=== PATIENT | female | born 1955 | race Caucasian/White ===

== ENCOUNTER 2019-12-25 09:52 | Inpatient (IN) | payer MEDICARE ==
[~2019-12-25] VITALS: Ht 170.2 cm; Wt 50.8 kg
--- OUTSIDE RECORDS SUMMARY | 2019-12-25 09:55 | XMS REPORT ---
Author Author [facility] Address Unknown Phone Unavailable Care Team Providers Care Receiving Checker Name Role Phone Unavailable Unavailable Payers Payer Name Policy Type Policy Number Effective Date Expiration Date Problems This patient has no known problems. Allergies, Adverse Reactions, Alerts Allergy Name Allergy Type Status Severity Reaction(s) Onset Date Inactive Date Treating Clinician Comments No Known Allergies DA Active U 2019-08-21 00:00:00 Medications This patient has no known medications. Encounters Start Date/Time End Date/Time Encounter Type Admission Type Attending [facility] Facility Care Department Encounter ID 2019-07-10 04:23:00 2019-07-10 00:07:00 Inpatient E SE MED [id number] Results Test Description Test Time Test Comments Text Results Atomic Results Result Comments COMPREHENSIVE METABOLIC PANEL 2019-10-22 07:14:00 SODIUM (test code=NA) 139 mmol/L 136-145 POTASSIUM (test code=K) 5.0 mmol/L 3.5-5.1 CHLORIDE (test code=CL) 110.0 mmol/L 98-107 CARBON DIOXIDE (test code=CO2) 23.0 mmol/L 21-32 ANION GAP (test code=GAP) 11.0 10-20 GLUCOSE (test code=GLU) 113 mg/dL 74-106 BLOOD UREA NITROGEN (test code=BUN) 20 mg/dL 7-18 GLOMERULAR FILTRATION RATE (test code=GFR) > 60 mL/min >=60 Estimated GFR by using Modified MDRD formula.Chronic kidney disease is defined as either kidney damageor GFR <60 mL/min/1.73 m2 for >3 months. CREATININE (test code=CREAT) 0.80 mg/dL 0.55-1.02 Note change in reference range due to change in reagent. BUN/CREATININE RATIO (test code=BUN/CREA) 25.8 10-20 TOTAL PROTEIN (test code=PROT) 5.8 gram/dL 6.4-8.2 ALBUMIN (test code=ALB) 2.1 g/dL 3.4-5.0 GLOBULIN (test code=GLOB) 3.7 gram/dL 2.7-4.2 ALBUMIN/GLOBULIN RATIO (test code=A/G) 0.6 0.75-1.50 CALCIUM (test code=CA) 8.2 mg/dL 8.5-10.1 BILIRUBIN TOTAL (test code=BILT) 0.20 mg/dL 0.0-1.0 SGOT/AST (test code=AST) 10 IUnit/L 15-37 SGPT/ALT (test code=ALT) 12 IUnit/L 12-78 ALKALINE PHOSPHATASE TOTAL (test code=ALKP) 71 IUnit/L 45-117 Note change in reference range due to change in reagent. COMPREHENSIVE METABOLIC [id number] 07:09:00* Test Item Value Reference Range Comments SODIUM (test code=NA) 139 mmol/L 136-145 POTASSIUM (test code=K) 5.0 mmol/L 3.5-5.1 CHLORIDE (test code=CL) 110.0 mmol/L 98-107 CARBON DIOXIDE (test code=CO2) mmol/L 21-32 ANION GAP (test code=GAP) 10-20 GLUCOSE (test code=GLU) mg/dL 74-106 BLOOD UREA NITROGEN (test code=BUN) mg/dL 7-18 GLOMERULAR FILTRATION RATE (test code=GFR) mL/min >=60 CREATININE (test code=CREAT) mg/dL 0.55-1.02 BUN/CREATININE RATIO (test code=BUN/CREA) 10-20 TOTAL PROTEIN (test code=PROT) gram/dL 6.4-8.2 ALBUMIN (test code=ALB) g/dL 3.4-5.0 GLOBULIN (test code=GLOB) gram/dL 2.7-4.2 ALBUMIN/GLOBULIN RATIO (test code=A/G) 0.75-1.50 CALCIUM (test code=CA) mg/dL 8.5-10.1 BILIRUBIN TOTAL (test code=BILT) mg/dL 0.0-1.0 SGOT/AST (test code=AST) IUnit/L 15-37 SGPT/ALT (test code=ALT) IUnit/L 12-78 ALKALINE PHOSPHATASE TOTAL (test code=ALKP) IUnit/L 45-117 CBC W/AUTO [id number] 06:56:00* Test Item Value Reference Range Comments WHITE BLOOD CELL (test code=WBC) 11.1 K/mm3 4.5-12.5 RED BLOOD CELL (test code=RBC) 3.81 mill/mm3 3.7-5.2 HEMOGLOBIN (test code=HGB) 10.5 gram/dL 11.5-15.5 HEMATOCRIT (test code=HCT) 33.9 % 36.0-46.0 MEAN CELL VOLUME (test code=MCV) 89.0 fL 80-98 MEAN CELL HGB (test code=MCH) 27.6 picogram 27.0-33.0 MEAN CELL HGB CONCETRATION (test code=MCHC) 31.0 gram/dL 33.0-36.0 RED CELL DISTRIBUTION WIDTH (test code=RDW) 14.6 % 11.6-16.2 RED CELL DISTRIBUTION WIDTH SD (test code=RDW-SD) 47.3 fL 37.0-51.0 PLATELET COUNT (test code=PLT) 480 K/mm3 150-450 RESULT VERIFIED BY REPEAT ANALYSIS MEAN PLATELET VOLUME (test code=MPV) 8.7 fL 6.7-11.0 NEUTROPHIL % (test code=NT%) 87.6 % 39.0-69.0 IMMATURE GRANULOCYTE % (test code=IG%) 1.4 % 0.0-5.0 LYMPHOCYTE % (test code=LY%) 8.6 % 25.0-55.0 MONOCYTE % (test code=MO%) 2.3 % 0.0-10.0 EOSINOPHIL % (test code=EO%) 0.0 % 0.0-5.0 BASOPHIL % (test code=BA%) 0.1 % 0.0-1.0 NUCLEATED RBC % (test code=NRBC%) 0.0 % 0-0 NEUTROPHIL # (test code=NT#) 9.73 K/mm3 1.8-7.7 IMMATURE GRANULOCYTE # (test code=IG#) 0.15 x10 3/uL 0-0.03 LYMPHOCYTE # (test code=LY#) 0.96 K/mm3 1.0-5.0 MONOCYTE # (test code=MO#) 0.26 K/mm3 0-0.8 EOSINOPHIL # (test code=EO#) 0.00 K/mm3 0.0-0.5 BASOPHIL # (test code=BA#) 0.01 K/mm3 0.0-0.2 NUCLEATED RBC # (test code=NRBC#) 0.00 K/mm3 0.0-0.1 MANUAL DIFF REQUIRED (test code=MDIFF) NO COMPREHENSIVE METABOLIC [id number] 09:50:00* Test Item Value Reference Range Comments SODIUM (test code=NA) 141 mmol/L 136-145 POTASSIUM (test code=K) 4.3 mmol/L 3.5-5.1 CHLORIDE (test code=CL) 112.0 mmol/L 98-107 CARBON DIOXIDE (test code=CO2) 23.0 mmol/L 21-32 ANION GAP (test code=GAP) 10.3 10-20 GLUCOSE (test code=GLU) 124 mg/dL 74-106 BLOOD UREA NITROGEN (test code=BUN) 18 mg/dL 7-18 GLOMERULAR FILTRATION RATE (test code=GFR) > 60 mL/min >=60 Estimated GFR by using Modified MDRD formula.Chronic kidney disease is defined as either kidney damageor GFR <60 mL/min/1.73 m2 for >3 months. CREATININE (test code=CREAT) 0.70 mg/dL 0.55-1.02 Note change in reference range due to change in reagent. BUN/CREATININE RATIO (test code=BUN/CREA) 24.7 10-20 TOTAL PROTEIN (test code=PROT) 5.9 gram/dL 6.4-8.2 ALBUMIN (test code=ALB) 1.9 g/dL 3.4-5.0 GLOBULIN (test code=GLOB) 4.0 gram/dL 2.7-4.2 ALBUMIN/GLOBULIN RATIO (test code=A/G) 0.5 0.75-1.50 CALCIUM (test code=CA) 7.7 mg/dL 8.5-10.1 BILIRUBIN TOTAL (test code=BILT) 0.20 mg/dL 0.0-1.0 SGOT/AST (test code=AST) 8 IUnit/L 15-37 SGPT/ALT (test code=ALT) 9 IUnit/L 12-78 ALKALINE PHOSPHATASE TOTAL (test code=ALKP) 67 IUnit/L 45-117 Note change in reference range due to change in reagent. COMPREHENSIVE METABOLIC [id number] 09:41:00* Test Item Value Reference Range Comments SODIUM (test code=NA) 141 mmol/L 136-145 POTASSIUM (test code=K) 4.3 mmol/L 3.5-5.1 CHLORIDE (test code=CL) 112.0 mmol/L 98-107 CARBON DIOXIDE (test code=CO2) mmol/L 21-32 ANION GAP (test code=GAP) 10-20 GLUCOSE (test code=GLU) mg/dL 74-106 BLOOD UREA NITROGEN (test code=BUN) mg/dL 7-18 GLOMERULAR FILTRATION RATE (test code=GFR) mL/min >=60 CREATININE (test code=CREAT) mg/dL 0.55-1.02 BUN/CREATININE RATIO (test code=BUN/CREA) 10-20 TOTAL PROTEIN (test code=PROT) gram/dL 6.4-8.2 ALBUMIN (test code=ALB) g/dL 3.4-5.0 GLOBULIN (test code=GLOB) gram/dL 2.7-4.2 ALBUMIN/GLOBULIN RATIO (test code=A/G) 0.75-1.50 CALCIUM (test code=CA) mg/dL 8.5-10.1 BILIRUBIN TOTAL (test code=BILT) mg/dL 0.0-1.0 SGOT/AST (test code=AST) IUnit/L 15-37 SGPT/ALT (test code=ALT) IUnit/L 12-78 ALKALINE PHOSPHATASE TOTAL (test code=ALKP) IUnit/L 45-117 CBC W/AUTO [id number] 09:20:00* Test Item Value Reference Range Comments WHITE BLOOD CELL (test code=WBC) 14.2 K/mm3 4.5-12.5 RED BLOOD CELL (test code=RBC) 3.35 mill/mm3 3.7-5.2 HEMOGLOBIN (test code=HGB) 9.1 gram/dL 11.5-15.5 HEMATOCRIT (test code=HCT) 29.7 % 36.0-46.0 MEAN CELL VOLUME (test code=MCV) 88.7 fL 80-98 MEAN CELL HGB (test code=MCH) 27.2 picogram 27.0-33.0 MEAN CELL HGB CONCETRATION (test code=MCHC) 30.6 gram/dL 33.0-36.0 RED CELL DISTRIBUTION WIDTH (test code=RDW) 14.6 % 11.6-16.2 RED CELL DISTRIBUTION WIDTH SD (test code=RDW-SD) 46.8 fL 37.0-51.0 PLATELET COUNT (test code=PLT) 379 K/mm3 150-450 MEAN PLATELET VOLUME (test code=MPV) 8.9 fL 6.7-11.0 NEUTROPHIL % (test code=NT%) 91.7 % 39.0-69.0 IMMATURE GRANULOCYTE % (test code=IG%) 1.0 % 0.0-5.0 LYMPHOCYTE % (test code=LY%) 5.0 % 25.0-55.0 MONOCYTE % (test code=MO%) 2.2 % 0.0-10.0 EOSINOPHIL % (test code=EO%) 0.0 % 0.0-5.0 BASOPHIL % (test code=BA%) 0.1 % 0.0-1.0 NUCLEATED RBC % (test code=NRBC%) 0.1 % 0-0 NEUTROPHIL # (test code=NT#) 13.04 K/mm3 1.8-7.7 IMMATURE GRANULOCYTE # (test code=IG#) 0.14 x10 3/uL 0-0.03 LYMPHOCYTE # (test code=LY#) 0.71 K/mm3 1.0-5.0 MONOCYTE # (test code=MO#) 0.31 K/mm3 0-0.8 EOSINOPHIL # (test code=EO#) 0.00 K/mm3 0.0-0.5 BASOPHIL # (test code=BA#) 0.02 K/mm3 0.0-0.2 NUCLEATED RBC # (test code=NRBC#) 0.02 K/mm3 0.0-0.1 MANUAL DIFF REQUIRED (test code=MDIFF) NO - XR ABDOMEN AP 1 [id number] 15:53:00 FAX: Gabrielle Hernandez MD [phone] Oark: B St: ADM FAX: Nito Berman [phone] FAX: Suhas Solis MD [phone] Name: TRAVIS MUELLER [facility] : 1955 Age/S: 64/F [address] Unit #: [id number] Loc: [place] [address] Phys: Suhas Walker MD Acct: [id number] Dis Date: Status: ADM IN ONE #: [phone] Exam Date: 10/20/2019 1535 FAX #: [phone] Reason: intussucception EXAMS: CPT CODE: [id number] XR ABDOMEN AP 1 V 09600 HISTORY: Intus susception. COMPARISON: None available. Location: TH . Single view abdomen: No bowel obstruction. Postop changes with extensive surgical sutures in the right lower quadrant. Melisa gical clips in the pelvis as well. No pathologic calcifications. DJD of the lumbar spine. IMPRESSION: No bowel obstruc tion. Postop changes with multiple surgical sutures in the right lower quadrant. a t 1410 Reported and signed by: Norbert Ly M.D. CC: Gabrielle Hernandez MD; Nito Delatorre DO; Suhas Walker MD Techn ologist: SON NATARAJAN(R) Trnscrd Date/Adam e/By: 10/20/2019 (7155) : By: [email or web address] Orig Print D/T: S: 10/20/2019 (7901) PAGE 1 Signed Report COMPREHENSIVE METABOLIC [id number] 15:35:00* Test Item Value Reference Range Comments SODIUM (test code=NA) 144 mmol/L 136-145 POTASSIUM (test code=K) 4.5 mmol/L 3.5-5.1 CHLORIDE (test code=CL) 111.0 mmol/L 98-107 CARBON DIOXIDE (test code=CO2) 25.0 mmol/L 21-32 ANION GAP (test code=GAP) 12.5 10-20 GLUCOSE (test code=GLU) 126 mg/dL 74-106 BLOOD UREA NITROGEN (test code=BUN) 21 mg/dL 7-18 GLOMERULAR FILTRATION RATE (test code=GFR) > 60 mL/min >=60 Estimated GFR by using Modified MDRD formula.Chronic kidney disease is defined as either kidney damageor GFR <60 mL/min/1.73 m2 for >3 months. CREATININE (test code=CREAT) 0.90 mg/dL 0.55-1.02 Note change in reference range due to change in reagent. BUN/CREATININE RATIO (test code=BUN/CREA) 24.1 10-20 TOTAL PROTEIN (test code=PROT) 6.1 gram/dL 6.4-8.2 ALBUMIN (test code=ALB) 2.3 g/dL 3.4-5.0 GLOBULIN (test code=GLOB) 3.8 gram/dL 2.7-4.2 ALBUMIN/GLOBULIN RATIO (test code=A/G) 0.6 0.75-1.50 CALCIUM (test code=CA) 8.5 mg/dL 8.5-10.1 BILIRUBIN TOTAL (test code=BILT) 0.30 mg/dL 0.0-1.0 SGOT/AST (test code=AST) 9 IUnit/L 15-37 SGPT/ALT (test code=ALT) 9 IUnit/L 12-78 ALKALINE PHOSPHATASE TOTAL (test code=ALKP) 79 IUnit/L 45-117 Note change in reference range due to change in reagent. COMPREHENSIVE METABOLIC [id number] 15:26:00* Test Item Value Reference Range Comments SODIUM (test code=NA) 144 mmol/L 136-145 POTASSIUM (test code=K) 4.5 mmol/L 3.5-5.1 CHLORIDE (test code=CL) 111.0 mmol/L 98-107 CARBON DIOXIDE (test code=CO2) mmol/L 21-32 ANION GAP (test code=GAP) 10-20 GLUCOSE (test code=GLU) mg/dL 74-106 BLOOD UREA NITROGEN (test code=BUN) mg/dL 7-18 GLOMERULAR FILTRATION RATE (test code=GFR) mL/min >=60 CREATININE (test code=CREAT) mg/dL 0.55-1.02 BUN/CREATININE RATIO (test code=BUN/CREA) 10-20 TOTAL PROTEIN (test code=PROT) gram/dL 6.4-8.2 ALBUMIN (test code=ALB) g/dL 3.4-5.0 GLOBULIN (test code=GLOB) gram/dL 2.7-4.2 ALBUMIN/GLOBULIN RATIO (test code=A/G) 0.75-1.50 CALCIUM (test code=CA) mg/dL 8.5-10.1 BILIRUBIN TOTAL (test code=BILT) mg/dL 0.0-1.0 SGOT/AST (test code=AST) IUnit/L 15-37 SGPT/ALT (test code=ALT) IUnit/L 12-78 ALKALINE PHOSPHATASE TOTAL (test code=ALKP) IUnit/L 45-117 CBC W/AUTO [id number] 12:17:00* Test Item Value Reference Range Comments WHITE BLOOD CELL (test code=WBC) 17.0 K/mm3 4.5-12.5 RED BLOOD CELL (test code=RBC) 3.47 mill/mm3 3.7-5.2 HEMOGLOBIN (test code=HGB) 9.6 gram/dL 11.5-15.5 HEMATOCRIT (test code=HCT) 31.7 % 36.0-46.0 MEAN CELL VOLUME (test code=MCV) 91.4 fL 80-98 MEAN CELL HGB (test code=MCH) 27.7 picogram 27.0-33.0 MEAN CELL HGB CONCETRATION (test code=MCHC) 30.3 gram/dL 33.0-36.0 RED CELL DISTRIBUTION WIDTH (test code=RDW) 14.6 % 11.6-16.2 RED CELL DISTRIBUTION WIDTH SD (test code=RDW-SD) 49.1 fL 37.0-51.0 PLATELET COUNT (test code=PLT) 343 K/mm3 150-450 MEAN PLATELET VOLUME (test code=MPV) 8.3 fL 6.7-11.0 NEUTROPHIL % (test code=NT%) 90.3 % 39.0-69.0 IMMATURE GRANULOCYTE % (test code=IG%) 0.9 % 0.0-5.0 LYMPHOCYTE % (test code=LY%) 4.4 % 25.0-55.0 MONOCYTE % (test code=MO%) 4.2 % 0.0-10.0 EOSINOPHIL % (test code=EO%) 0.0 % 0.0-5.0 BASOPHIL % (test code=BA%) 0.2 % 0.0-1.0 NUCLEATED RBC % (test code=NRBC%) 0.0 % 0-0 NEUTROPHIL # (test code=NT#) 15.37 K/mm3 1.8-7.7 IMMATURE GRANULOCYTE # (test code=IG#) 0.16 x10 3/uL 0-0.03 LYMPHOCYTE # (test code=LY#) 0.75 K/mm3 1.0-5.0 MONOCYTE # (test code=MO#) 0.72 K/mm3 0-0.8 EOSINOPHIL # (test code=EO#) 0.00 K/mm3 0.0-0.5 BASOPHIL # (test code=BA#) 0.03 K/mm3 0.0-0.2 NUCLEATED RBC # (test code=NRBC#) 0.00 K/mm3 0.0-0.1 PROCALCITONIN (PCT)2019-10-20 05:50:00* Test Item Value Reference Range Comments PROCALCITONIN (PCT) (test code=PROCAL) 0.82 ng/ml Concentration Interpretation (ng/mL) <0.51 Sepsis is not likely. Local bacterial infection is possible. (LOW RISK for progression to Sepsis) 0.51 - 2.00 Sepsis is possible, but other conditions are known to elevate PCT as well. (MODERATE RISK for progression to Sepsis) > 2.00 Sepsis is likely, unless other causes are known. (HIGH RISK for progression to Severe Sepsis or Septic Shock) 10.00 High likelihood of Severe Sepsis or Septic or higher Shock. *Increased PCT levels may not always be related to systemic bacterial infection.*Low PCT levels do not automatically exclude the presence of bacterial infection.*All results should be interpreted taking into account the patients history. LACTIC [id number] 05:31:00* Test Item Value Reference Range Comments LACTIC ACID (test code=LACT) 1.2 mmol/L 0.4-1.9 URINALYSIS [id number] 15:05:00* Test Item Value Reference Range Comments UA COLOR (test code=COLU) Light-Yellow YELLOW UA APPEARANCE (test code=APPU) CLEAR CLEAR UA GLUCOSE DIPSTICK (test code=DGLUU) NEGATIVE mg/dL NEGATIVE UA BILIRUBIN DIPSTICK (test code=BILU) NEGATIVE mg/dL NEGATIVE UA KETONE DIPSTICK (test code=KETU) NEGATIVE mg/dL NEGATIVE UA SPECIFIC GRAVITY (test code=SGU) 1.040 1.001-1.035 UA BLOOD DIPSTICK (test code=MERLY) Negative mg/dL NEGATIVE UA PH DIPSTICK (test code=ANAHI) 5.5 5.0-8.0 UA PROTEIN DIPSTICK (test code=PROU) 20 (Trace) mg/dL NEGATIVE UA UROBILINIOGEN DIPSTICK (test code=URO) Normal mg/dL NEGATIVE UA NITRITE DIPSTICK (test code=ISIDRO) POSITIVE NEGATIVE UA LEUKOCYTE ESTERASE W REFLEX (test code=LEUUR) NEGATIVE Kathia/uL NEGATIVE UA WBC (test code=WBCU) 0-5 per HPF 0-5 UA RBC (test code=RBCU) 0-2 #/HPF 0-5 UA EPITHELIAL CELLS (test code=EPIU) FEW per HPF FEW UA BACTERIA (test code=BACU) FEW #/HPF NONE UA MUCUS (test code=MUCU) FEW #/LPF FEW Urine Source? Clean Catch- CT CHEST W/O [id number] 14:26:00 Name: TRAVIS MUELLER [facility] : 1955 Age/S: 64 / F [address] Unit #: [id number] Loc: [place] [address] Phys: Angelic Hopson MD Acct: [id number] Di s Date: Status: ADM IN PHONE #: [phone] Exam Date: 10/19/2019 0203 FAX #: [phone] Reason: SOB EXAMS: CPT CODE: [id number] CT CHEST W/O CONTRAST 43515 REASON FOR EXAM: CODE SEP SIS EXAM ORDER DATE: 10/19/2019 9:38 AM Ordering M.D. : Kalia Hopson MD PROCEDURE: - CT ABD PELVIS W/CONT, - CT CHEST W/O CONTRAST Axial CT images were acquired through the chest/abdomen/pelv is. Images of the chest were obtained prior to the administration of IV co ntrast and images of the abdomen and pelvis were acquired following administration of IV contrast. Sagittal and coronal reformatted images wer e generated. Automated exposure control was utilized for this reduction. Phases of contrast: venous and delayed COMPARISON: CT angiogram of the chest August 21, 2019 FINDINGS: The absence of IV contrast limits sensitivity of this exam for the detecti on of soft tissue pathology and the thorax Visualized neck: Grossl y normal Airways, Lungs and Pleura: There are extensive paraseptal and centrilobular emphysematous changes throughout both lungs. There is subsegmental atelectasis in the dependent lungs. There is a cystic le dimitris in the right lung at the confluence of the upper, middle, and lower l obe with air-fluid levels that measures up to 7.5 x 4.6 cm cross-sectional ly (02/[address] chest).. Central airways are patent. Heart, gre at vessels, pulmonary vessels, mediastinum: Mild atherosclerotic disease o f the thoracic aorta. The thoracic aorta is slightly ectatic measuring 3.7 cm in diameter. There is fatty metaplasia of the right ventricle wall whi ch may be secondary to chronic ischemic changes. Mild atherosclerotic dise ase is present in the coronary arteries. Thoracic Lymph node s: No axillary, internal mammary, or mediastinal adenopathy. Hilar lymph n odes are suboptimally evaluated due to the absence of IV contrast and the chest Hepatobiliary system: Normal PAGE 1 Signed Report (CONTINUED) Name: TRAVIS MUELLER [facility] : 1955 Age/S: 64 / F [address] [facility] Unit #: [id number] Loc: [place] [address] Phys: Kalia Hopson MD Acct: [id number] Dis Date: atus: ADM IN PHONE #: [phone] Exam Ricardo e: 10/19/2019 1336 FAX #: [phone] Reason: SOB EXAMS: CPT CODE: [id number] CT CHEST W/O CONTRAST 76570 <Continued> Pancreas: Atrophic Spleen: Calcified granulomas are present in the parenchyma Adrenal glands: Normal Genitourinary system: Normal Gastrointestinal tract and appendix: Diverticular disease is present in the sigmoid colon but no evidence of diverticulitis. Postsurgical changes in the right lower abdomen near the ileocecal junction may be from prior appendectomy. Moderate to heavy stool burden is seen in the ascending colon. There is intussusception involving a 4.6 cm segment of small bowel (601/64) in the left midabdomen. No dilation of the small bowel proximally to suggest obstruction. Stomach is within normal limits Abdominal vascular structures: Atherosclerotic disease is seen throughout the abdominal aorta and extends into the iliac arteries and mesenteric arteries Peritoneum and retroperitoneum: No free fluid or free air. No omental or mesenteric masses. No abnormal lymph nodes. Musculoskeletal structures, chest wall, and abdominal wall: Grade 1 anterolisthesis of L4-L5. Mild disc degeneration is present at L5-S1. Postsurgical changes of laparotomy are noted. IMPRESSION: Cystic lesion in the right lung with air-fluid levels. This may represent a pneumatocele with superimposed infection versus a pulmonary abscess. Severe emphysematous changes throughout both lungs. Colonic diverticulosis without evidence of diverticulitis. Intussusc eption of small bowel in the left midabdomen as above. Locatio n: [facility] at 1426 Reported and signed by: Vitaliy Parsons MD PAGE 2 Signed Report (CONTINUED) Name: TRAVIS MUELLER [facility] : 1955 A ge/S: 64 / F [address] [facility] Unit #: [id number] Loc : [place] [address] Phys: Kalia Hopson MD Acct: [id number] Dis Date: Status: ADM IN PHONE #: [phone] Exam Date: 10/19/2019 1708 FAX #: [phone] Reason: SOB EXAMS: CPT CODE: [id number] CT CHEST W/O CONTRAST 14803 <Continued> CC: Gabrielle Hernandez MD; Nito Delatorre DO; Kalia Hopson MD Technologist:Frandy Gomez RT(R),(MR),(CT); CTDI: DLP: Trnscb Date/Time: 10/19/2019 (7066) [email or web address] Orig Print D/T: S: 10/19/2019 (7501) PAGE 3 Signed Report - CT ABD PELVIS [id number] 14:26:00 Name: TRAVIS MUELLER [facility] : 1955 Age/S: 64 / F [address] [facility] Unit #: [id number] Loc: [place] [address] Phys: Kalia Hopson MD Acct: [id number] Dis Date: Status: ADM IN PHONE #: [phone] Exam Date: 10/19/2019 1335 FAX #: [phone] Reason: CODE SEPSIS EXAMS: CPT CODE: [id number] CT ABD PELVIS W/CONT 77850 REASON FOR EXAM: CODE SEPSIS EXAM ORDER DATE: 10/19/2019 9:38 AM Ordering M.D.: Kalia Hopson MD PROCEDURE: - CT ABD PELVIS W/CONT, - CT CHEST W/O CONTRAST Axial CT images were acquired through the chest/abdomen/pelvis. Images of the chest were obtained prior to the administration of IV contrast and images of the abdomen and pelvis were acquired following administration of IV contrast. Sagittal and coronal reformatted images were generated. Automated exposure control was utilized for this reduction. Phases of contrast: venous and delayed COMPARISON: CT angiogram of the chest August 21, 2019 FINDINGS: The absence of IV contrast limits sensitivity of this exam for the detection of soft tissue pathology and the thorax Visualized neck: Grossly normal Airways, Lungs and Pleura: There are extensive paraseptal and centrilobular emphysematous changes throughout both lungs. There is subsegmental atelectasis in the dependent lungs. There is a cystic lesion in the right lung at the confluence of the upper, middle, and lower lobe with air-fluid levels that measures up to 7.5 x 4.6 cm cross-sectionally (02/[address] chest).. Central airways are patent. Heart, great vessels, pulmonary vessels, mediastinum: Mild atherosclerotic disease of the thoracic aorta. The thoracic aorta is slightly ectatic measuring 3.7 cm in diameter. There is fatty metaplasia of the right ventricle wall whi ch may be secondary to chronic ischemic changes. Mild atherosclerotic dise ase is present in the coronary arteries. Thoracic Lymph node s: No axillary, internal mammary, or mediastinal adenopathy. Hilar lymph n odes are suboptimally evaluated due to the absence of IV contrast and the chest Hepatobiliary system: Normal PAGE 1 Signed Report (CONTINUED) Name: TRAVIS MUELLER [facility] : 1955 Age/S: 64 / F [address] [facility] Unit #: [id number] Loc: [facility] [address] Phys: Kalia Hopson MD Acct: [id number] Dis Date: atus: ADM IN PHONE #: [phone] Exam Ricardo e: 10/19/2019 1335 FAX #: [phone] Reason: CODE SE PSIS EXAMS: CPT CODE: [id number] CT ABD PELVIS W/CONT 81974 <Continued> Pancreas: Atrophic Spleen: Calcified granulomas are present in the parenchyma Adrenal glands: Normal Genitourinary system: Normal Gastrointestinal tract and appendix: Diverticular disease is present in the sigmoid colon but no evidence of diverticulitis. Postsurgical changes in the right lower abdomen near the ileocecal junction may be from prior appendectomy. Moderate to heavy stool burden is seen in the ascending colon. There is intussusception involving a 4.6 cm segment of small bowel (601/64) in the left midabdomen. No dilation of the small bowel proximally to suggest obstruction. Stomach is within normal limits Abdominal vascular structures: Atherosclerotic disease is seen throughout the abdominal aorta and extends into the iliac arteries and mesenteric arteries Peritoneum and retroperitoneum: No free fluid or free air. No omental or mesenteric masses. No abnormal lymph nodes. Musculoskeletal structures, chest wall, and abdominal wall: Grade 1 anterolisthesis of L4-L5. Mild disc degeneration is present at L5-S1. Postsurgical changes of laparotomy are noted. IMPRESSION: Cystic lesion in the right lung with air-fluid levels. This may represent a pneumatocele with superimposed infection versus a pulmonary abscess. Severe emphysematous changes throughout both lungs. Colonic diverticulosis without evidence of diverticulitis. Intussusc eption of small bowel in the left midabdomen as above. Locatio n: [facility] at 1426 Reported and signed by: Vitaliy Parsons MD PAGE 2 Signed Report (CONTINUED) Name: TRAVIS MUELLER [facility] : 1955 A ge/S: 64 / F [facility] Unit #: [id number] Loc : [facility] [address] Phys: Kalia Hopson MD Acct: [id number] Dis Date: Status: ADM IN PHONE #: [phone] Exam Date: 10/19/2019 1335 FAX #: [phone] Reason: CODE SEPSIS EXAMS: CPT CODE: [id number] CT ABD PELVIS W/CONT 23561 <Continued> CC: Nito Delatorre DO; Kalia Hopson MD Technologist:Frandy Gomez RT(R),(MR),(CT); CTDI: DLP: Trnscb Date/Time: 10/19/2019 (1425) [id number] Orig Print D/T: S: 10/19/2019 (1428) PAGE 3 Signed Report B-TYPE NATRIURETIC [id number] 11:13:00* Test Item Value Reference Range Comments B-TYPE NATRIURETIC PEPTIDE (test code=BNP) 194.68 pgram/mL 0-100 PROCALCITONIN (PCT)2019-10-19 10:44:00* Test Item Value Reference Range Comments PROCALCITONIN (PCT) (test code=PROCAL) 1.23 ng/ml Concentration Interpretation (ng/mL) <0.51 Sepsis is not likely. Local bacterial infection is possible. (LOW RISK for progression to Sepsis) 0.51 - 2.00 Sepsis is possible, but other conditions are known to elevate PCT as well. (MODERATE RISK for progression to Sepsis) > 2.00 Sepsis is likely, unless other causes are known. (HIGH RISK for progression to Severe Sepsis or Septic Shock) 10.00 High likelihood of Severe Sepsis or Septic or higher Shock. *Increased PCT levels may not always be related to systemic bacterial infection.*Low PCT levels do not automatically exclude the presence of bacterial infection.*All results should be interpreted taking into account the patients history. - XR CHEST 1 [id number] 10:36:00 FAX: Nito Berman [phone] Oark: St: REG FAX: Kalia Hopson MD Name: TRAVIS MUELLER [facility] : 1955 Age/S: 64/F [address] Unit #: [id number] Loc: [place] [address] Phys: Kalia Hopson MD Acct: [id number] Dis Date: Status: REG ER PHONE #: [phone] Exam Date: 10/19/2019 1001 FAX #: [phone] Reason: CODE SEPSIS EXAMS: CPT CODE: [id number] XR CHEST 1 V [id number] REASON FOR EXAM: CODE SEPSIS Exam Order Date: 10/19/2019 9:38 AM Ordering M.D.: Kalia Hopson MD PROCEDURE: - XR CHEST 1 V COMPARISON: CT and radiograph of the chest August 21, 2019 FINDINGS: There are emphysematous and fibrotic changes in both lungs which are worse in the upper lobes. When compared to the prior chest radiograph, there are worsening opacities in the right upper lobe which may represent a superimposed infection. The cardiomediastinal silhouette and musculoskeletal structures are within normal limits. IMPRESSION: Emphysematous and fibrotic changes throughout both lungs are redemonstrated and there is worsening opacification in the right upper lobe which may represent a superimposed infection. Location: [facility] Electronical ly Signed by Vitaliy Parsons MD on 10/19/2019 at 1036 Report ed and signed by: Vitaliy Parsons MD CC: Nito Delatorre DO; Shalonda Hopson MD Technologist: Brittanie Carter RT(R) Trnscrd Date/Time/By: 10/19/2019 (1036) : By: [email or web address] O rig Print D/T: S: 10/19/2019 (8065) PAGE 1 Signed Report BASIC METABOLIC PANEL 2019-10-19 10:31:00* Test Item Value Reference Range Comments SODIUM (test code=NA) 136 mmol/L 136-145 POTASSIUM (test code=K) 4.0 mmol/L 3.5-5.1 CHLORIDE (test code=CL) 102.0 mmol/L 98-107 CARBON DIOXIDE (test code=CO2) 25.0 mmol/L 21-32 ANION GAP (test code=GAP) 13.0 10-20 GLUCOSE (test code=GLU) 100 mg/dL 74-106 BLOOD UREA NITROGEN (test code=BUN) 25 mg/dL 7-18 GLOMERULAR FILTRATION RATE (test code=GFR) > 60 mL/min >=60 Estimated GFR by using Modified MDRD formula.Chronic kidney disease is defined as either kidney damageor GFR <60 mL/min/1.73 m2 for >3 months. CREATININE (test code=CREAT) 0.90 mg/dL 0.55-1.02 Note change in reference range due to change in reagent. BUN/CREATININE RATIO (test code=BUN/CREA) 26.7 10-20 CALCIUM (test code=CA) 9.5 mg/dL 8.5-10.1 HEPATIC FUNCTION [id number] 10:31:00* Test Item Value Reference Range Comments TOTAL PROTEIN (test code=PROT) 8.3 gram/dL 6.4-8.2 ALBUMIN (test code=ALB) 2.7 g/dL 3.4-5.0 GLOBULIN (test code=GLOB) 5.6 gram/dL 2.7-4.2 ALBUMIN/GLOBULIN RATIO (test code=A/G) 0.5 0.75-1.50 BILIRUBIN TOTAL (test code=BILT) 0.70 mg/dL 0.0-1.0 BILIRUBIN DIRECT (test code=BILD) 0.26 mg/dL 0.0-0.20 SGOT/AST (test code=AST) 9 IUnit/L 15-37 SGPT/ALT (test code=ALT) 11 IUnit/L 12-78 ALKALINE PHOSPHATASE TOTAL (test code=ALKP) 115 IUnit/L 45-117 Note change in reference range due to change in reagent. [id number] 10:31:00* Test Item Value Reference Range Comments LIPASE (test code=LIP) 70 U/L 73.0-393.0 [id number] 10:31:00* Test Item Value Reference Range Comments TROPONIN-I (test code=TROPI) <0.015 ng/mL 0-0.045 LACTIC [id number] 10:29:00* Test Item Value Reference Range Comments LACTIC ACID (test code=LACT) 1.9 mmol/L 0.4-1.9 BASIC METABOLIC [id number] 10:20:00* Test Item Value Reference Range Comments SODIUM (test code=NA) 136 mmol/L 136-145 POTASSIUM (test code=K) 4.0 mmol/L 3.5-5.1 CHLORIDE (test code=CL) 102.0 mmol/L 98-107 CARBON DIOXIDE (test code=CO2) mmol/L 21-32 ANION GAP (test code=GAP) 10-20 GLUCOSE (test code=GLU) mg/dL 74-106 BLOOD UREA NITROGEN (test code=BUN) mg/dL 7-18 GLOMERULAR FILTRATION RATE (test code=GFR) mL/min >=60 CREATININE (test code=CREAT) mg/dL 0.55-1.02 BUN/CREATININE RATIO (test code=BUN/CREA) 10-20 CALCIUM (test code=CA) mg/dL 8.5-10.1 HEPATIC FUNCTION [id number] 10:20:00* Test Item Value Reference Range Comments TOTAL PROTEIN (test code=PROT) gram/dL 6.4-8.2 ALBUMIN (test code=ALB) g/dL 3.4-5.0 GLOBULIN (test code=GLOB) gram/dL 2.7-4.2 ALBUMIN/GLOBULIN RATIO (test code=A/G) 0.75-1.50 BILIRUBIN TOTAL (test code=BILT) mg/dL 0.0-1.0 BILIRUBIN DIRECT (test code=BILD) mg/dL 0.0-0.20 SGOT/AST (test code=AST) IUnit/L 15-37 SGPT/ALT (test code=ALT) IUnit/L 12-78 ALKALINE PHOSPHATASE TOTAL (test code=ALKP) IUnit/L 45-117 [id number] 10:20:00* Test Item Value Reference Range Comments LIPASE (test code=LIP) U/L 73.0-393.0 [id number] 10:20:00* Test Item Value Reference Range Comments TROPONIN-I (test code=TROPI) ng/mL 0-0.045 CBC W/AUTO [id number] 10:18:00* Test Item Value Reference Range Comments WHITE BLOOD CELL (test code=WBC) 16.1 K/mm3 4.5-12.5 RED BLOOD CELL (test code=RBC) 4.47 mill/mm3 3.7-5.2 HEMOGLOBIN (test code=HGB) 12.3 gram/dL 11.5-15.5 HEMATOCRIT (test code=HCT) 40.4 % 36.0-46.0 MEAN CELL VOLUME (test code=MCV) 90.4 fL 80-98 MEAN CELL HGB (test code=MCH) 27.5 picogram 27.0-33.0 MEAN CELL HGB CONCETRATION (test code=MCHC) 30.4 gram/dL 33.0-36.0 RED CELL DISTRIBUTION WIDTH (test code=RDW) 14.4 % 11.6-16.2 RED CELL DISTRIBUTION WIDTH SD (test code=RDW-SD) 47.7 fL 37.0-51.0 PLATELET COUNT (test code=PLT) 400 K/mm3 150-450 MEAN PLATELET VOLUME (test code=MPV) 8.8 fL 6.7-11.0 NEUTROPHIL % (test code=NT%) 84.5 % 39.0-69.0 IMMATURE GRANULOCYTE % (test code=IG%) 1.0 % 0.0-5.0 LYMPHOCYTE % (test code=LY%) 7.7 % 25.0-55.0 MONOCYTE % (test code=MO%) 6.0 % 0.0-10.0 EOSINOPHIL % (test code=EO%) 0.3 % 0.0-5.0 BASOPHIL % (test code=BA%) 0.5 % 0.0-1.0 NUCLEATED RBC % (test code=NRBC%) 0.0 % 0-0 NEUTROPHIL # (test code=NT#) 13.63 K/mm3 1.8-7.7 IMMATURE GRANULOCYTE # (test code=IG#) 0.16 x10 3/uL 0-0.03 LYMPHOCYTE # (test code=LY#) 1.25 K/mm3 1.0-5.0 MONOCYTE # (test code=MO#) 0.96 K/mm3 0-0.8 EOSINOPHIL # (test code=EO#) 0.05 K/mm3 0.0-0.5 BASOPHIL # (test code=BA#) 0.08 K/mm3 0.0-0.2 NUCLEATED RBC # (test code=NRBC#) 0.00 K/mm3 0.0-0.1 MANUAL DIFF REQUIRED (test code=MDIFF) NO CBC W/AUTO [id number] 10:08:00* Test Item Value Reference Range Comments WHITE BLOOD CELL (test code=WBC) K/mm3 4.5-12.5 RED BLOOD CELL (test code=RBC) mill/mm3 3.7-5.2 HEMOGLOBIN (test code=HGB) 12.3 gram/dL 11.5-15.5 HEMATOCRIT (test code=HCT) 40.4 % 36.0-46.0 MEAN CELL VOLUME (test code=MCV) fL 80-98 MEAN CELL HGB (test code=MCH) picogram 27.0-33.0 MEAN CELL HGB CONCETRATION (test code=MCHC) gram/dL 33.0-36.0 RED CELL DISTRIBUTION WIDTH (test code=RDW) % 11.6-16.2 RED CELL DISTRIBUTION WIDTH SD (test code=RDW-SD) fL 37.0-51.0 PLATELET COUNT (test code=PLT) K/mm3 150-450 MEAN PLATELET VOLUME (test code=MPV) fL 6.7-11.0 NEUTROPHIL % (test code=NT%) % 39.0-69.0 IMMATURE GRANULOCYTE % (test code=IG%) % 0.0-5.0 LYMPHOCYTE % (test code=LY%) % 25.0-55.0 MONOCYTE % (test code=MO%) % 0.0-10.0 EOSINOPHIL % (test code=EO%) % 0.0-5.0 BASOPHIL % (test code=BA%) % 0.0-1.0 NEUTROPHIL # (test code=NT#) K/mm3 1.8-7.7 LYMPHOCYTE # (test code=LY#) K/mm3 1.0-5.0 MONOCYTE # (test code=MO#) K/mm3 0-0.8 EOSINOPHIL # (test code=EO#) K/mm3 0.0-0.5 BASOPHIL # (test code=BA#) K/mm3 0.0-0.2 VENOUS BLOOD [id number] 09:48:00* Test Item Value Reference Range Comments VENOUS BLOOD GAS PH (test code=PHV) 7.43 7.30-7.40 VENOUS BLOOD GAS PCO2 (test code=PCO2V) 38.8 mm Hg 39.0-51.0 VENOUS BLOOD GAS PO2 (test code=PO2V) < 45.9 mm Hg 30.0-50.0 VBG HCO3 (test code=HCO3V) 25.0 mmol/L 17.0-30.0 VBG BASE EXCESS (test code=AVERY) 0.7 mmol/L -5.0-5.0 VENOUS BLOOD GAS O2 SAT. (test code=O2SATV) 37 % 94-98 VENOUS BLOOD GAS FIO2 (test code=FIO2V) 36.0 PT. HGB (test code=PHGBVBG) 12.8 gram/dL 11.5-15.5 VENOUS BLOOD GAS SITE (test code=SITEV) IVC HEMATOCRIT (test code=HCT/VBG) 38 % 42-52 HGB O2 SAT (test code=HBOSAT) 36.2 % 94.00-98.00 CARBOXYHEMOGLOBIN (test code=HOHGBT) 1.8 %totalHg 0.5-1.5 METHEMOGLOBIN (test code=METHGB) 0.3 % 0.0-1.50 [id number] 13:15:00* Test Item Value Reference Range Comments GLUBED (test code=GLUBED) 163 mg/dL 74-106 Performed by certified tread tuber machine operator at [facility] [id number] 08:06:00* Test Item Value Reference Range Comments GLUBED (test code=GLUBED) 102 mg/dL 74-106 Performed by certified tread tuber machine operator at [facility] [id number] 20:33:00* Test Item Value Reference Range Comments GLUBED (test code=GLUBED) 136 mg/dL 74-106 Performed by certified tread tuber machine operator at [facility] [id number] 17:23:00* Test Item Value Reference Range Comments POTASSIUM (test code=K) 4.1 mmol/L 3.5-5.1 [id number] 16:32:00* Test Item Value Reference Range Comments GLUBED (test code=GLUBED) 121 mg/dL 74-106 Performed by certified tread tuber machine operator at [facility] [id number] 11:41:00* Test Item Value Reference Range Comments GLUBED (test code=GLUBED) 112 mg/dL 74-106 Performed by certified tread tuber machine operator at [facility] [id number] 07:40:00* Test Item Value Reference Range Comments GLUBED (test code=GLUBED) 93 mg/dL 74-106 Performed by certified tread tuber machine operator at [facility] COMPREHENSIVE METABOLIC [id number] 07:06:00* Test Item Value Reference Range Comments SODIUM (test code=NA) 138 mmol/L 136-145 POTASSIUM (test code=K) 5.2 mmol/L 3.5-5.1 CHLORIDE (test code=CL) 101.0 mmol/L 98-107 CARBON DIOXIDE (test code=CO2) 27.0 mmol/L 21-32 ANION GAP (test code=GAP) 15.2 10-20 GLUCOSE (test code=GLU) 85 mg/dL 74-106 BLOOD UREA NITROGEN (test code=BUN) 28 mg/dL 7-18 GLOMERULAR FILTRATION RATE (test code=GFR) > 60 mL/min >=60 Estimated GFR by using Modified MDRD formula.Chronic kidney disease is defined as either kidney damageor GFR <60 mL/min/1.73 m2 for >3 months. CREATININE (test code=CREAT) 0.80 mg/dL 0.55-1.02 Note change in reference range due to change in reagent. BUN/CREATININE RATIO (test code=BUN/CREA) 36.2 10-20 TOTAL PROTEIN (test code=PROT) 6.6 gram/dL 6.4-8.2 ALBUMIN (test code=ALB) 3.0 g/dL 3.4-5.0 GLOBULIN (test code=GLOB) 3.6 gram/dL 2.7-4.2 ALBUMIN/GLOBULIN RATIO (test code=A/G) 0.8 0.75-1.50 CALCIUM (test code=CA) 9.3 mg/dL 8.5-10.1 BILIRUBIN TOTAL (test code=BILT) 0.60 mg/dL 0.0-1.0 SGOT/AST (test code=AST) 14 IUnit/L 15-37 SGPT/ALT (test code=ALT) 10 IUnit/L 12-78 ALKALINE PHOSPHATASE TOTAL (test code=ALKP) 72 IUnit/L 45-117 Note change in reference range due to change in reagent. COMPREHENSIVE METABOLIC [id number] 06:53:00* Test Item Value Reference Range Comments SODIUM (test code=NA) 138 mmol/L 136-145 POTASSIUM (test code=K) 5.2 mmol/L 3.5-5.1 CHLORIDE (test code=CL) 101.0 mmol/L 98-107 CARBON DIOXIDE (test code=CO2) mmol/L 21-32 ANION GAP (test code=GAP) 10-20 GLUCOSE (test code=GLU) mg/dL 74-106 BLOOD UREA NITROGEN (test code=BUN) mg/dL 7-18 GLOMERULAR FILTRATION RATE (test code=GFR) mL/min >=60 CREATININE (test code=CREAT) mg/dL 0.55-1.02 BUN/CREATININE RATIO (test code=BUN/CREA) 10-20 TOTAL PROTEIN (test code=PROT) gram/dL 6.4-8.2 ALBUMIN (test code=ALB) g/dL 3.4-5.0 GLOBULIN (test code=GLOB) gram/dL 2.7-4.2 ALBUMIN/GLOBULIN RATIO (test code=A/G) 0.75-1.50 CALCIUM (test code=CA) mg/dL 8.5-10.1 BILIRUBIN TOTAL (test code=BILT) mg/dL 0.0-1.0 SGOT/AST (test code=AST) IUnit/L 15-37 SGPT/ALT (test code=ALT) IUnit/L 12-78 ALKALINE PHOSPHATASE TOTAL (test code=ALKP) IUnit/L 45-117 [id number] 20:21:00* Test Item Value Reference Range Comments GLUBED (test code=GLUBED) 121 mg/dL 74-106 Performed by certified tread tuber machine operator at [facility] [id number] 18:34:00* Test Item Value Reference Range Comments GLUBED (test code=GLUBED) 132 mg/dL 74-106 Performed by certified tread tuber machine operator at [facility] [id number] 16:54:00* Test Item Value Reference Range Comments GLUBED (test code=GLUBED) 118 mg/dL 74-106 Performed by certified tread tuber machine operator at [facility] [id number] 07:34:00* Test Item Value Reference Range Comments GLUBED (test code=GLUBED) 184 mg/dL 74-106 Performed by certified tread tuber machine operator at [facility] COMPREHENSIVE METABOLIC [id number] 04:04:00* Test Item Value Reference Range Comments SODIUM (test code=NA) 137 mmol/L 136-145 POTASSIUM (test code=K) 5.1 mmol/L 3.5-5.1 CHLORIDE (test code=CL) 97.0 mmol/L 98-107 CARBON DIOXIDE (test code=CO2) 29.0 mmol/L 21-32 ANION GAP (test code=GAP) 16.1 10-20 GLUCOSE (test code=GLU) 137 mg/dL 74-106 BLOOD UREA NITROGEN (test code=BUN) 23 mg/dL 7-18 RESULT VERIFIED BY REPEAT ANALYSIS GLOMERULAR FILTRATION RATE (test code=GFR) 56 mL/min >=60 Estimated GFR by using Modified MDRD formula.Chronic kidney disease is defined as either kidney damageor GFR <60 mL/min/1.73 m2 for >3 months. CREATININE (test code=CREAT) 1.00 mg/dL 0.55-1.02 Note change in reference range due to change in reagent. BUN/CREATININE RATIO (test code=BUN/CREA) 23.0 10-20 TOTAL PROTEIN (test code=PROT) 7.3 gram/dL 6.4-8.2 ALBUMIN (test code=ALB) 3.1 g/dL 3.4-5.0 GLOBULIN (test code=GLOB) 4.2 gram/dL 2.7-4.2 ALBUMIN/GLOBULIN RATIO (test code=A/G) 0.7 0.75-1.50 CALCIUM (test code=CA) 9.4 mg/dL 8.5-10.1 BILIRUBIN TOTAL (test code=BILT) 0.30 mg/dL 0.0-1.0 SGOT/AST (test code=AST) 9 IUnit/L 15-37 SGPT/ALT (test code=ALT) 13 IUnit/L 12-78 ALKALINE PHOSPHATASE TOTAL (test code=ALKP) 83 IUnit/L 45-117 Note change in reference range due to change in reagent. COMPREHENSIVE METABOLIC [id number] 03:19:00* Test Item Value Reference Range Comments SODIUM (test code=NA) 137 mmol/L 136-145 POTASSIUM (test code=K) 5.1 mmol/L 3.5-5.1 CHLORIDE (test code=CL) 97.0 mmol/L 98-107 CARBON DIOXIDE (test code=CO2) 29.0 mmol/L 21-32 ANION GAP (test code=GAP) 16.1 10-20 GLUCOSE (test code=GLU) 137 mg/dL 74-106 BLOOD UREA NITROGEN (test code=BUN) 23 mg/dL 7-18 GLOMERULAR FILTRATION RATE (test code=GFR) 56 mL/min >=60 Estimated GFR by using Modified MDRD formula.Chronic kidney disease is defined as either kidney damageor GFR <60 mL/min/1.73 m2 for >3 months. CREATININE (test code=CREAT) 1.00 mg/dL 0.55-1.02 Note change in reference range due to change in reagent. BUN/CREATININE RATIO (test code=BUN/CREA) 23.0 10-20 TOTAL PROTEIN (test code=PROT) 7.3 gram/dL 6.4-8.2 ALBUMIN (test code=ALB) 3.1 g/dL 3.4-5.0 GLOBULIN (test code=GLOB) 4.2 gram/dL 2.7-4.2 ALBUMIN/GLOBULIN RATIO (test code=A/G) 0.7 0.75-1.50 CALCIUM (test code=CA) 9.4 mg/dL 8.5-10.1 BILIRUBIN TOTAL (test code=BILT) 0.30 mg/dL 0.0-1.0 SGOT/AST (test code=AST) 9 IUnit/L 15-37 SGPT/ALT (test code=ALT) 13 IUnit/L 12-78 ALKALINE PHOSPHATASE TOTAL (test code=ALKP) 83 IUnit/L 45-117 Note change in reference range due to change in reagent. COMPREHENSIVE METABOLIC [id number] 03:13:00* Test Item Value Reference Range Comments SODIUM (test code=NA) 137 mmol/L 136-145 POTASSIUM (test code=K) 5.1 mmol/L 3.5-5.1 CHLORIDE (test code=CL) 97.0 mmol/L 98-107 CARBON DIOXIDE (test code=CO2) mmol/L 21-32 ANION GAP (test code=GAP) 10-20 GLUCOSE (test code=GLU) mg/dL 74-106 BLOOD UREA NITROGEN (test code=BUN) mg/dL 7-18 GLOMERULAR FILTRATION RATE (test code=GFR) mL/min >=60 CREATININE (test code=CREAT) mg/dL 0.55-1.02 BUN/CREATININE RATIO (test code=BUN/CREA) 10-20 TOTAL PROTEIN (test code=PROT) gram/dL 6.4-8.2 ALBUMIN (test code=ALB) g/dL 3.4-5.0 GLOBULIN (test code=GLOB) gram/dL 2.7-4.2 ALBUMIN/GLOBULIN RATIO (test code=A/G) 0.75-1.50 CALCIUM (test code=CA) mg/dL 8.5-10.1 BILIRUBIN TOTAL (test code=BILT) mg/dL 0.0-1.0 SGOT/AST (test code=AST) IUnit/L 15-37 SGPT/ALT (test code=ALT) IUnit/L 12-78 ALKALINE PHOSPHATASE TOTAL (test code=ALKP) IUnit/L 45-117 CBC W/AUTO [id number] 02:53:00* Test Item Value Reference Range Comments WHITE BLOOD CELL (test code=WBC) 5.3 K/mm3 4.5-12.5 RED BLOOD CELL (test code=RBC) 4.46 mill/mm3 3.7-5.2 HEMOGLOBIN (test code=HGB) 12.4 gram/dL 11.5-15.5 HEMATOCRIT (test code=HCT) 38.9 % 36.0-46.0 MEAN CELL VOLUME (test code=MCV) 87.2 fL 80-98 MEAN CELL HGB (test code=MCH) 27.8 picogram 27.0-33.0 MEAN CELL HGB CONCETRATION (test code=MCHC) 31.9 gram/dL 33.0-36.0 RED CELL DISTRIBUTION WIDTH (test code=RDW) 14.3 % 11.6-16.2 RED CELL DISTRIBUTION WIDTH SD (test code=RDW-SD) 46.0 fL 37.0-51.0 PLATELET COUNT (test code=PLT) 301 K/mm3 150-450 MEAN PLATELET VOLUME (test code=MPV) 8.1 fL 6.7-11.0 NEUTROPHIL % (test code=NT%) 81.6 % 39.0-69.0 IMMATURE GRANULOCYTE % (test code=IG%) 0.8 % 0.0-5.0 LYMPHOCYTE % (test code=LY%) 16.7 % 25.0-55.0 MONOCYTE % (test code=MO%) 0.9 % 0.0-10.0 EOSINOPHIL % (test code=EO%) 0.0 % 0.0-5.0 BASOPHIL % (test code=BA%) 0.0 % 0.0-1.0 NUCLEATED RBC % (test code=NRBC%) 0.0 % 0-0 NEUTROPHIL # (test code=NT#) 4.30 K/mm3 1.8-7.7 IMMATURE GRANULOCYTE # (test code=IG#) 0.04 x10 3/uL 0-0.03 LYMPHOCYTE # (test code=LY#) 0.88 K/mm3 1.0-5.0 MONOCYTE # (test code=MO#) 0.05 K/mm3 0-0.8 EOSINOPHIL # (test code=EO#) 0.00 K/mm3 0.0-0.5 BASOPHIL # (test code=BA#) 0.00 K/mm3 0.0-0.2 NUCLEATED RBC # (test code=NRBC#) 0.00 K/mm3 0.0-0.1 MANUAL DIFF REQUIRED (test code=MDIFF) NO [id number] 23:59:00* Test Item Value Reference Range Comments TROPONIN-I (test code=TROPI) <0.015 ng/mL 0-0.045 COMMENTS TO ROBOTIC MACHINE OPERATOR: COLLECT 3 HOURS AFTER PREVIOUS [id number] 20:05:00* Test Item Value Reference Range Comments TROPONIN-I (test code=TROPI) <0.015 ng/mL 0-0.045 COMMENTS TO ROBOTIC MACHINE OPERATOR: COLLECT 3 HOURS AFTER PREVIOUS SAMPLEVENOUS BLOOD [id number] 14:48:00* Test Item Value Reference Range Comments IONIZED CALCIUM (test code=CAIABG) 1.24 mmol/L 1.1-1.37 VENOUS BLOOD GAS PH (test code=PHV) 7.39 7.30-7.40 VENOUS BLOOD GAS PCO2 (test code=PCO2V) 49.5 mm Hg 39.0-51.0 VENOUS BLOOD GAS PO2 (test code=PO2V) 53.1 mm Hg 30.0-50.0 VBG HCO3 (test code=HCO3V) 29.2 mmol/L 17.0-30.0 VBG BASE EXCESS (test code=AVERY) 3.3 mmol/L -5.0-5.0 VENOUS BLOOD GAS O2 SAT. (test code=O2SATV) 86 % 94-98 VENOUS BLOOD GAS FIO2 (test code=FIO2V) 32.0 PT. HGB (test code=PHGBVBG) 12.8 gram/dL 11.5-15.5 VENOUS BLOOD GAS SITE (test code=SITEV) IVC SODIUM (test code=NA/VBG) 130.9 mEq/L 135-148 POTASSIUM (test code=K/VBG) 4.3 mEq/L 3.4-4.4 CHLORIDE (test code=CL/VBG) 93 mEq/L 98-106 GLUCOSE (test code=GLU/VBG) 136 mg/dL 74-99 HEMATOCRIT (test code=HCT/VBG) 38 % 42-52 HGB O2 SAT (test code=HBOSAT) 83.9 % 94.00-98.00 CARBOXYHEMOGLOBIN (test code=HOHGBT) 2.5 %totalHg 0.5-1.5 Results called to and read back by Boubacar 14:48 - 08/21/2019; by [id number] METHEMOGLOBIN (test code=METHGB) 0.3 % 0.0-1.50 - CTA [id number] 14:32:00 Name: TRAVIS MUELLER [facility] : 1955 Age/S: 64 / F [address] [facility] Unit #: [id number] Loc: [facility] [place] [address] Phys: Kalia Hopson MD Acct: [id number] Dis Date: Status: REG ER PHONE #: [phone] Exam Date: 08/21/2019 1331 FAX #: [phone] Reason: tachcyardia, hypoxia, chest pain, recent ab melisa EXAMS: CPT CODE: [id number] CTA CHEST 32354 HISTORY: Tachycardia and hypoxia. COMPARISON: None available. CTA CHEST: 3-D images. 100 mL of Isovue-370. Automated exposure control Unremarkable aorta without aneurysm or dissection. Unremarkable pulmonary arteries without pulmonary embolism. Well-opacified SVC and the neck vasculature. Unremarkable thyroid glands. Esophageal wall is mildly thickened. Correlate for esophagitis. No pathologic adenopathy. Cardiac silhouette is normal without pericardial effusion. Visualized upper abdomen is unremarkable. Subcutaneous tissues and the musculature are normal in appearance. No lytic or blastic lesions are noted within the bony sk [place]. DJD. Severe COPD with apical pleural-parenchymal scarring. No acute infiltrates, effusion or congestion. No bronchiectasis, honeycom darci or fibrosis. No discrete mass or lesions. Calcified granuloma in the left upper lobe. IMPRESSION: No pulmonary embolism with unremarkable aorta. Severe COPD with scarring especially in the upper lobes. Electronically Signed by Tres Ly on at 1432 Reported and signed by: Norbert Ly M.D. CC: Kalia Hopson MD Techn ologist:RT Justen(R),CT CTDI: DLP: Trnscb Date/Adam e: 08/21/2019 (1432) [email or web address] Orig Print D/T: S: 019 (0188) PAGE 1 Signed Report B-TYPE NATRIURETIC [id number] 13:26:00* Test Item Value Reference Range Comments B-TYPE NATRIURETIC PEPTIDE (test code=BNP) 61.59 pgram/mL 0-100 PROTHROMBIN [id number] 13:21:00* Test Item Value Reference Range Comments PROTHROMBIN TIME PATIENT (test code=PTP) 9.9 seconds 9.0-14.0 INTERNATIONAL NORMAL RATIO (test code=INR) 0.8 0.8-1.2 The therapeutic range for oral anticoagulant therapy formost indications is an international normalized ratio (INR)of between 2.0 and 3.0. The recommended therapeutic INRrange for various clinical situations is listed below: Clinical Situation INR range Pulmonary e mbolism treatment (2.0-3.0)Venous thrombosis treatmentVenous thrombosis prophylaxis (high risk surgery)Prevention of systemic embolism from: Acute myocardial infarction Valvular heart disease Atrial fibrillation Mechanical prosthetic heart valves (2.5-3.5) IS PATIENT ON ANTICOAGULANTS? NTHROMBOPLASTIN TIME [id number] 13:21:00* Test Item Value Reference Range Comments THROMBOPLASTIN TIME PARTIAL (test code=PTT) 27.5 seconds 25.0-36.5 IS PATIENT ON ANTICOAGULANTS? N- XR CHEST 1 [id number] 13:20:00 FAX: Kalia Hopson MD [place]: B St: REG Name: Dylan PINEDATRAVIS Asher [facility] : [birth year] Age/S: 64/F [address] [facility] Unit #: [id number] Loc: [facility] [place] [address] Phys: Kalia Hopson MD Acct: [id number] Dis Date: Status: REG ER PHONE #: [phone] Exam Date: 08/21/2019 1306 FAX #: [phone] Reason: Shortness of Breath EXAMS: CPT CODE: [id number] XR CHEST 1 V 11963 HISTORY: Shortness of breath. COMPARISON: None available. Severe COPD and scarring. Apical pleural thickening No acute infiltrates, effusion or congestion is noted. The cardiac and mediastinal silhouette are within normal limits. IMPRESSION: No acute infiltrates, effusion or co ngestion. Severe COPD and lung scarring. Electronically Sign ed by Tres Ly on 08/21/2019 at 1320 Reported a nd signed by: Norbert Ly M.D. CC: Kalia Hopson MD Technologist: Brittanie Carter RT(R) Trnscrd Date/Time/By: 08/21/2019 (1330) : By: [email or web address] Orig Print D/T: S: 08/21/2019 (6441) PAGE 1 Signed Report BASIC METABOLIC [id number] 13:02:00* Test Item Value Reference Range Comments SODIUM (test code=NA) 137 mmol/L 136-145 POTASSIUM (test code=K) 4.7 mmol/L 3.5-5.1 CHLORIDE (test code=CL) 99.0 mmol/L 98-107 CARBON DIOXIDE (test code=CO2) 31.0 mmol/L 21-32 ANION GAP (test code=GAP) 11.7 10-20 GLUCOSE (test code=GLU) 130 mg/dL 74-106 BLOOD UREA NITROGEN (test code=BUN) 15 mg/dL 7-18 GLOMERULAR FILTRATION RATE (test code=GFR) 50 mL/min >=60 Estimated GFR by using Modified MDRD formula.Chronic kidney disease is defined as either kidney damageor GFR <60 mL/min/1.73 m2 for >3 months. CREATININE (test code=CREAT) 1.10 mg/dL 0.55-1.02 Note change in reference range due to change in reagent. BUN/CREATININE RATIO (test code=BUN/CREA) 13.6 10-20 CALCIUM (test code=CA) 9.4 mg/dL 8.5-10.1 [id number] 13:02:00* Test Item Value Reference Range Comments TROPONIN-I (test code=TROPI) <0.015 ng/mL 0-0.045 CBC W/O [id number] 12:37:00* Test Item Value Reference Range Comments WHITE BLOOD CELL (test code=WBC) 9.9 K/mm3 4.5-12.5 RED BLOOD CELL (test code=RBC) 4.49 mill/mm3 3.7-5.2 HEMOGLOBIN (test code=HGB) 12.3 gram/dL 11.5-15.5 HEMATOCRIT (test code=HCT) 39.9 % 36.0-46.0 MEAN CELL VOLUME (test code=MCV) 88.9 fL 80-98 MEAN CELL HGB (test code=MCH) 27.4 picogram 27.0-33.0 MEAN CELL HGB CONCETRATION (test code=MCHC) 30.8 gram/dL 33.0-36.0 RED CELL DISTRIBUTION WIDTH (test code=RDW) 14.2 % 11.6-16.2 PLATELET COUNT (test code=PLT) 296 K/mm3 150-450 MEAN PLATELET VOLUME (test code=MPV) 7.9 fL 6.7-11.0 CBC W/O [id number] 12:31:00* Test Item Value Reference Range Comments WHITE BLOOD CELL (test code=WBC) K/mm3 4.5-12.5 RED BLOOD CELL (test code=RBC) mill/mm3 3.7-5.2 HEMOGLOBIN (test code=HGB) 12.3 gram/dL 11.5-15.5 HEMATOCRIT (test code=HCT) 39.9 % 36.0-46.0 MEAN CELL VOLUME (test code=MCV) fL 80-98 MEAN CELL HGB (test code=MCH) picogram 27.0-33.0 MEAN CELL HGB CONCETRATION (test code=MCHC) gram/dL 33.0-36.0 RED CELL DISTRIBUTION WIDTH (test code=RDW) % 11.6-16.2 PLATELET COUNT (test code=PLT) K/mm3 150-450 MEAN PLATELET VOLUME (test code=MPV) fL 6.7-11.0
[2019-12-25] MEDS ORDERED: SODIUM CHLORIDE 0.9% 1000ML 1,000 ML IV STA (10:01)
[2019-12-25] MEDS ORDERED: ALBUTEROL SULF 0.083% NEB SOLN 3 ML NEB NEB STA (10:03)
[2019-12-25] MEDS ORDERED: METHYLPREDNISOLONE SOD SUCC 125 MG/2ML VIAL IV STA (10:03)
[2019-12-25] MEDS ORDERED: ALBUTEROL SULF 0.083% NEB SOLN 3 ML NEB ONE (10:07)
[2019-12-25] MEDS ORDERED: IPRATROPIUM BROMIDE 0.02% 2.5 ML NEB ONE (10:08)
[2019-12-25] MEDS ORDERED: ASPIRIN 81 MG CHEW TAB PO ONE (10:15)
[2019-12-25] MEDS ORDERED: IPRATROPIUM BROMIDE 0.02% 2.5 ML NEB NEB ONE (10:15)
[2019-12-25 10:41] LABS: BASOPHILS # (AUTO) 0.1 (0.0-0.1); BASOPHILS % 0.6 % (0.0-1.0); EOSINOPHILS % 0.1 % (0.0-6.0); LYMPHOCYTES # (AUTO) 1.1 (1.0-3.2); LYMPHOCYTES % 12.2 % (18.0-39.1); MEAN CORPUSCULAR HEMOGLOBIN 26.3 pg (28-32); MEAN CORPUSCULAR HGB CONC 29.8 g/dL (31-35); MEAN CORPUSCULAR VOLUME 88.3 fL (81-99); MONOCYTES # (AUTO) 0.2 (0.2-0.8); MONOCYTES % 2.2 % (4.4-11.3); NEUTROPHILS # (AUTO) 7.8 (2.1-6.9); NEUTROPHILS % 84.4 % (38.7-80.0); PLATELET COUNT 369 x10e3/uL (140-360); RED BLOOD COUNT 5.32 x10e6/uL (3.6-5.1); RED CELL DISTRIBUTION WIDTH 14.5 % (11.7-14.4)
[2019-12-25 11:04] LABS: ALANINE AMINOTRANSFERASE 7 IU/L (0-55); ALBUMIN 3.5 g/dL (3.5-5.0); ALBUMIN/GLOBULIN RATIO 0.7 (0.8-2.0); ALKALINE PHOSPHATASE 99 IU/L (40-150); ANION GAP 18.9 mmol/L (8-16); BLOOD UREA NITROGEN 13 mg/dL (7-26); BUN/CREATININE RATIO 15 (6-25); CALCIUM 10.9 mg/dL (8.4-10.2); CARBON DIOXIDE 30 mmol/L (22-29); CHLORIDE 95 mmol/L (98-107); CREATINE KINASE 8 IU/L (29-168); CREATININE, SERUM 0.88 mg/dL (0.57-1.11); EST GLOMERULAR FILTRATION RATE > 60 ML/MIN (60-); GLUCOSE 119 mg/dL (74-118); MAGNESIUM 1.6 MG/DL (1.3-2.1); POTASSIUM 4.9 mmol/L (3.5-5.1); SODIUM 139 mmol/L (136-145)
[2019-12-25 11:07] LABS: INR 0.85; PROTHROMBIN TIME 12.1 seconds (11.9-14.5)
[2019-12-25 11:08] LABS: PARTIAL THROMBOPLASTIN TIME 25.7 seconds (23.8-35.5)
[2019-12-25] MEDS: CEFTRIAXONE SOD 1 GM/NS 50 ML 50 ML IV SCH (11:20)
--- NOTE | 2019-12-25 11:26 | Diagnostic Imaging Report ---
Chest, portable AP view History: Cough, shortness of breath Comparison: No comparisons available for review IMPRESSION: The heart is within normal limits of size. The lungs are hyperinflated compatible with COPD. There are coarsened interstitial markings which are likely secondary to fibrotic changes. Bibasilar atelectasis is present. No sizable pleural effusion. No pneumothorax. No acute osseous abnormalities. Signed by: Yan Li MD on 12/25/2019 11:24 AM
[2019-12-25] MEDS: AZITHROMYCIN 500MG/NS 250 ML 250 ML IV SCH (11:54)
[2019-12-25] MEDS ORDERED: SODIUM CHLORIDE 0.9% 500ML 500 ML IV ONE (12:15)
[2019-12-25 12:19] LABS: AMPHETAMINES SCREEN,URINE NEGATIVE (NEGATIVE); BENZODIAZEPINES SCREEN,URINE POSITIVE (NEGATIVE); PHENCYCLIDINE SCREEN,URINE NEGATIVE (NEGATIVE)
[2019-12-25 12:20] LABS: CLARITY,URINE CLEAR (CLEAR); COLOR,URINE YELLOW (YELLOW)
[2019-12-25 12:21] LABS: LEUKOCYTE ESTERASE ,URINE SMALL (NEGATIVE)
[2019-12-25 12:22] LABS: BACTERIA,URINE RARE /HPF; BILIRUBIN,URINE NEGATIVE (NEGATIVE); EPITHELIAL CELLS,URINE RARE /LPF; KETONES,URINE NEGATIVE (NEGATIVE); NITRITE,URINE NEGATIVE (NEGATIVE); PROTEIN,URINE DIPSTICK NEGATIVE (NEGATIVE); RBC,URINE 0-5 /HPF (0-5); URINE UROBILINOGEN 0.2 mg/dL (0.2 - 1)
[2019-12-25 13:07] LABS: ABG HCO3 28 mmol/L (23-28); ABG PCO2 42 mmHg (41-51); ABG PH 7.43 (7.31-7.41); ABG PO2 76 mmHg (80-105)
[2019-12-25 14:30] VITALS: BP 151/96
[2019-12-25 14:43] VITALS: BP 151/96
[2019-12-25 14:44] VITALS: BP 151/96
[2019-12-25] MEDS ORDERED: DICYCLOMINE HCL20 MG PO (14:52)
[2019-12-25] MEDS ORDERED: COMBIVENT RESPIM4 GM IH (14:52)
[2019-12-25] MEDS ORDERED: ALPRAZOLAM0.5 M1 PO (14:52)
[2019-12-25] MEDS ORDERED: LOSARTAN POTASS25 MG PO (14:52)
[2019-12-25] MEDS ORDERED: NORCO 10-325 T1 EACH PO (14:52)
[2019-12-25] MEDS ORDERED: METOPROLOL TART25 MG PO (14:52)
[2019-12-25] MEDS ORDERED: GABAPENTIN300 MG PO (14:52)
[2019-12-25] MEDS ORDERED: LASIX20 MG PO (14:52)
[2019-12-25] MEDS ORDERED: PREDNISONE10 MG PO (14:52)
[2019-12-25] MEDS: ALPRAZOLAM 0.5 MG TAB PO PRN (15:25)
[2019-12-25] MEDS ORDERED: ALPRAZOLAM 0.5 MG TAB ONE (15:30)
--- NOTE | 2019-12-25 15:55 | NUR ---
H&P cc: sob HPI: 64yoF, PCP Dr.R. Delatorre, Pulm , developed worsening SOB. quit cigs 7 months ago. Pt states that SaO2 was 60% in PCP's office today, so sent to hospital. Does use 3L/min O2 at home PMH: NIcotine dependence in remission, COPD, sbo s/p partial small bowel resection, Allegic rhinitis, CHronic resp failure on 3L/min O2 at home PSHx: partial small bowel due to SBO, appendectomy Allergies; se emr Fh/SH; ; quit cigs; meds; see MAR ROS: no f/c/s/N/V/D/MICHAEL/cp/skin rash/dizziness/focal limb weakness v/s revd PE tired appearing anicteric ns1s2 mod bs soft nt nd Reduced BS throughout no e/t skin dry flat affect a&ox3 labs/meds revd A/P: AECOPD- azithromycin/ceftriaxone/lorataradine/antitussives/Steroids Chronic resp failure- on 3L/min O2 at home. Allergic rhinitis- loratadine Nicotine dependence in remission- Prop: pepcid; lovenox Dispo: Nebs/abx/other meds; add steroids Josue Schaefer MD, PhD.
[2019-12-25] MEDS ORDERED: ALBUTEROL/IPRATROPIUM 3 ML NEB NEB PRN (16:00)
[2019-12-25] MEDS ORDERED: DEXTROSE 50% SYRINGE 50 ML IV PRN (16:15)
[2019-12-25] MEDS: INSULIN LISPRO 100 UNIT/1 ML 3ML VIAL SQ SCH ×2 (16:19→21:00)
[2019-12-25] MEDS: METOPROLOL TARTRATE 25 MG TAB PO SCH (16:26)
[2019-12-25] MEDS: FAMOTIDINE 20 MG TAB PO SCH (16:26)
[2019-12-25] MEDS: LORATADINE 10 MG TAB PO SCH (16:26)
[2019-12-25] MEDS: ENOXAPARIN SOD INJ 40 MG/0.4 ML SYR SC SCH (16:27)
[2019-12-25 16:42] VITALS: BP 130/78
[2019-12-25] MEDS: FLUTICASONE PROPIONATE NASAL SPRAY NS SCH (17:00)
--- NOTE | 2019-12-25 18:27 | NUR ---
PATIENT TOLERATED BEDSIDE COMMODE. PATIENT UP TO BATHROOM EARLIER. O2 SATS DOWN TO 70%. PATIENT TACHYPNEIC AND SOB. BACK TO BED WITH PATIENT IN RESP DISTRESS.
--- NOTE | 2019-12-25 18:45 | NUR ---
Report received. Assumed care. Assessment done. See interventions. IV saline locks x2. Can be up to bedside commode. Per report pt desated when she walked to restroom earlier. O2 per NC @ 3L.
[2019-12-25] MEDS: ALBUTEROL/IPRATROPIUM 3 ML NEB NEB SCH ×2 (19:20→23:00)
[2019-12-25 20:00] VITALS: BP 126/80
[2019-12-25 21:00] VITALS: BP 106/82
[2019-12-25] MEDS ORDERED: ZOLPIDEM TARTRATE 5 MG TAB PO PRN (21:00)
[2019-12-25 21:02] LABS: CREATINE KINASE MB 6.1 ng/mL (0-5.0)
[2019-12-25] MEDS: METHYLPREDNISOLONE SOD SUCC 40 MG/ML VIAL 1ML IV SCH (21:38)
[2019-12-25] MEDS: GUAIFENESIN/DEXTROMETHORPHAN LIQD 5 ML UDC NG SCH (21:38)
[2019-12-25] MEDS: BENZONATATE 100 MG CAP PO SCH (21:38)
[2019-12-26] VITALS: BP 129/78
--- NOTE | 2019-12-26 00:18 | Consultation ---
DATE OF CONSULTATION: 12/25/2019 Pulmonary Consultation HISTORY OF PRESENT ILLNESS: Patient of Dr. Josue Schaefer, Dr. Delatorre, and Dr. Rehman. Charming, but unfortunate 64-year-old woman, recently quit smoking, admitted with shortness of breath. She had been at [facility] in October with pneumonia, went home. Her was sick and feels that he infected her. She has no known allergies, but complaining of sinus congestion. She cannot recall her medications according to the ER record. She has been on dicyclomine, Lasix, gabapentin, Vicodin, Combivent, losartan, metoprolol and prednisone dose 10 mg a day as well as Zantac. Anxious white female complaining of shortness of breath. She had fever and chills and productive cough. This apparently resolved. She is on unknown antibiotics which she took at home, which name she cannot recall. She has had a volvulus in the past, required surgical correction, and appendectomy. SOCIAL HISTORY: She was born in [place], [place]. Ex-smoker, quit seven months ago. FAMILY HISTORY: Positive for COPD, even among nonsmokers. Also positive for coronary artery disease and renal failure, worked in [employer]. PHYSICAL EXAMINATION: GENERAL: She is an anxious white female, on supplemental oxygen, which she also uses at home. HEAD: Normocephalic and atraumatic. EYES: Extraocular movements are intact. LUNGS: Bilateral rhonchi, left greater than right. HEART: Regular rhythm. ABDOMEN: Nontender. EXTREMITIES: Not edematous. Bruising is noted. IMPRESSION: Community-acquired pneumonia, acute exacerbation chronic obstructive pulmonary disease, anxiety, and hypertension. Continue antihypertensive medications, empiric antibiotics, bronchodilators, moderate dose corticosteroids. Thank you for this kind referral. MD ZENAIDA Baldwin/MODL /[id number]
[2019-12-26] MEDS: ALBUTEROL/IPRATROPIUM 3 ML NEB NEB SCH ×6 (03:00→23:00)
[2019-12-26 04:00] VITALS: BP 129/66
--- NOTE | 2019-12-26 05:00 | NUR ---
Complete bed bath given. Bed linens changed.
[2019-12-26 05:31] LABS: BASOPHILS % 0.3 % (0.0-1.0); HEMATOCRIT 36.5 % (34.2-44.1); HEMOGLOBIN 10.7 g/dL (12.0-16.0); LYMPHOCYTES # (AUTO) 1.2 (1.0-3.2); MEAN CORPUSCULAR HEMOGLOBIN 26.4 pg (28-32); MEAN CORPUSCULAR HGB CONC 29.3 g/dL (31-35); MEAN CORPUSCULAR VOLUME 90.1 fL (81-99); MONOCYTES # (AUTO) 0.3 (0.2-0.8); MONOCYTES % 3.9 % (4.4-11.3); NEUTROPHILS # (AUTO) 6.3 (2.1-6.9); NEUTROPHILS % 79.8 % (38.7-80.0); PLATELET COUNT 324 x10e3/uL (140-360); RED BLOOD COUNT 4.05 x10e6/uL (3.6-5.1); RED CELL DISTRIBUTION WIDTH 14.3 % (11.7-14.4)
[2019-12-26] MEDS: GUAIFENESIN/DEXTROMETHORPHAN LIQD 5 ML UDC NG SCH ×3 (05:40→22:12)
[2019-12-26] MEDS: METHYLPREDNISOLONE SOD SUCC 40 MG/ML VIAL 1ML IV SCH ×3 (05:40→22:12)
[2019-12-26 06:01] LABS: CREATINE KINASE MB 2.2 ng/mL (0-5.0)
--- NOTE | 2019-12-26 06:26 | NUR ---
Throughout the night pt did get up to bedside commode. Priti fair. Does desat with exertion.
--- NOTE | 2019-12-26 06:32 | NUR ---
IM- progress note O/N see below ROS: no f/c/s/N/V/D/MICHAEL/cp/skin rash/dizziness/focal limb weakness v/s revd PE tired appearing anicteric ns1s2 mod bs soft nt nd Reduced BS throughout no e/t skin dry flat affect a&ox3 labs/meds revd A/P: AECOPD- azithromycin/ceftriaxone/lorataradine/antitussives/Steroids Chronic resp failure- on 3L/min O2 at home. Allergic rhinitis- loratadine Nicotine dependence in remission- Prop: pepcid; lovenox Dispo: Nebs/abx/other meds; add steroids 12/26 cont care. Josue Schaefer MD, PhD.
[2019-12-26 07:14] LABS: ALANINE AMINOTRANSFERASE 10 IU/L (0-55); ALBUMIN 2.7 g/dL (3.5-5.0); ALBUMIN/GLOBULIN RATIO 0.8 (0.8-2.0); ALKALINE PHOSPHATASE 74 IU/L (40-150); ANION GAP 17.5 mmol/L (8-16); BLOOD UREA NITROGEN 16 mg/dL (7-26); BUN/CREATININE RATIO 18 (6-25); CALCIUM 8.9 mg/dL (8.4-10.2); CARBON DIOXIDE 26 mmol/L (22-29); CHLORIDE 100 mmol/L (98-107); EST GLOMERULAR FILTRATION RATE > 60 ML/MIN (60-); GLUCOSE 146 mg/dL (74-118); POTASSIUM 4.5 mmol/L (3.5-5.1); SODIUM 139 mmol/L (136-145)
[2019-12-26 07:15] VITALS: BP 135/90
[2019-12-26] MEDS: INSULIN LISPRO 100 UNIT/1 ML 3ML VIAL SQ SCH ×4 (07:27→20:32)
[2019-12-26] MEDS: FAMOTIDINE 20 MG TAB PO SCH ×2 (07:35→16:08)
[2019-12-26] MEDS: FLUTICASONE PROPIONATE NASAL SPRAY NS SCH ×2 (08:06→16:09)
[2019-12-26] MEDS: METOPROLOL TARTRATE 25 MG TAB PO SCH ×2 (08:06→16:22)
[2019-12-26] MEDS: LORATADINE 10 MG TAB PO SCH (08:06)
[2019-12-26] MEDS: LOSARTAN POTASSIUM 25 MG TAB PO SCH (08:06)
[2019-12-26] MEDS: BENZONATATE 100 MG CAP PO SCH ×3 (08:06→20:31)
[2019-12-26] MEDS: CEFTRIAXONE SOD 1 GM/NS 50 ML 50 ML IV SCH (10:15)
[2019-12-26 12:00] VITALS: BP 125/67
[2019-12-26] MEDS: AZITHROMYCIN 500MG/NS 250 ML 250 ML IV SCH (12:05)
[2019-12-26] MEDS: ALPRAZOLAM 0.5 MG TAB PO PRN (12:16)
--- NOTE | 2019-12-26 12:41 | NUR ---
Nutrition Screen Note RD Recommendation for Physician: -Consider regular diet per MD. Plan of Care: RD following, monitoring for tolerance and adequacy. Pt denied ONS Nutrition reason for involvement: (low-BMI) Primary Diagnose(s): bronchitis, chest pain,COPD PMH: NIcotine dependence in remission, COPD, sbo s/p partial small bowel resection, Allegic rhinitis, CHronic resp failure on 3L/min O2 at home, partial small bowel due to SBO, appendectomy Ht: 67 in Wt:112 lb BMI: 17.5kg/m2 IBW:135lb RD Assessment: (12/26) 64 YOF admitted for bronchitis with PMH listed above. Pt was seen lying in her bed within the [facility]. The pt reported that she is very hungry currently. She stated her weight goes up and down, she says she falls anywhere between 90-120 lbs. She denied N/V/chewing or swallowing issues as well as any food allergies. She did state she had some diarrhea. LBM: not recorded. Offered ONS, pt denied. Pt displayed some fat and muscle loss. No other weights were provided in EMR. Chart reviewed. Pt consumed 100% of her breakfast this morning, pt appears she is meeting her calorie and protein needs here in the hospital. Labs and meds reviewed. Will continue to monitor. Current Diet: cardiac Malnutrition Evaluation 12/26 The patient does not meet criteria for a specified degree of malnutrition at this time. Will re-evaluate at follow-up as appropriate. Energy intake: -pt reported she was very hungry Weight loss: UBW is anywhere between 90-120lbs per the pt Fat loss: Moderate Muscle loss: Moderate Diet Education Needs Assessment: Diet education not indicated. Diet Adequacy: Meeting calorie needs, Meeting protein needs Nutrition Care Level: low Signed: Lulu Maurer, RD, LD
--- NOTE | 2019-12-26 15:24 | Diagnostic Imaging Report ---
Exam: Chest one view Comparison: December 25, 2019 Clinical history: Shortness of breath Findings: There is no evidence of pulmonary consolidation, pleural effusion, or pneumothorax. Increased interstitial pulmonary opacities are again noted which may represent interstitial lung disease. Both lungs are mildly hyperinflated which may suggest COPD. The regional osseous structures are unremarkable. Signed by: Dr. Tom Gómez MD on 12/26/2019 3:22 PM
[2019-12-26 16:15] VITALS: BP 124/92
[2019-12-26] MEDS: ENOXAPARIN SOD INJ 40 MG/0.4 ML SYR SC SCH (16:22)
[2019-12-26 20:00] VITALS: BP 130/89
[2019-12-27] VITALS (8 sets, daily range): BP systolic 111–134; BP diastolic 72–89
[2019-12-27] MEDS: ALBUTEROL/IPRATROPIUM 3 ML NEB NEB SCH ×6 (02:35→23:05)
[2019-12-27] MEDS: METHYLPREDNISOLONE SOD SUCC 40 MG/ML VIAL 1ML IV SCH ×3 (06:00→21:50)
[2019-12-27] MEDS: GUAIFENESIN/DEXTROMETHORPHAN LIQD 5 ML UDC NG SCH ×3 (06:00→21:50)
--- NOTE | 2019-12-27 06:13 | NUR ---
IM- progress note O/N see below ROS: no f/c/s/N/V/D/MICHAEL/cp/skin rash/dizziness/focal limb weakness v/s revd PE tired appearing anicteric ns1s2 mod bs soft nt nd Reduced BS throughout no e/t skin dry flat affect a&ox3 labs/meds revd A/P: AECOPD- azithromycin/ceftriaxone/lorataradine/antitussives/Steroids Chronic resp failure- on 3L/min O2 at home. Allergic rhinitis- loratadine Nicotine dependence in remission- Prop: pepcid; lovenox Dispo: Nebs/abx/other meds; add steroids 12/26 cont care. 12/27 GNR UTI; cont pulm support Josue Schaefer MD, PhD.
[2019-12-27] MEDS: INSULIN LISPRO 100 UNIT/1 ML 3ML VIAL SQ SCH ×4 (07:30→20:40)
[2019-12-27] MEDS: FLUTICASONE PROPIONATE NASAL SPRAY NS SCH ×2 (08:34→16:00)
[2019-12-27] MEDS: FAMOTIDINE 20 MG TAB PO SCH ×2 (08:34→16:00)
[2019-12-27] MEDS: LORATADINE 10 MG TAB PO SCH (08:35)
[2019-12-27] MEDS: METOPROLOL TARTRATE 25 MG TAB PO SCH ×2 (08:35→16:09)
[2019-12-27] MEDS: LOSARTAN POTASSIUM 25 MG TAB PO SCH (08:35)
[2019-12-27] MEDS: ALPRAZOLAM 0.5 MG TAB PO PRN (08:36)
[2019-12-27] MEDS: BENZONATATE 100 MG CAP PO SCH ×3 (08:36→21:50)
[2019-12-27] MEDS: CEFTRIAXONE SOD 1 GM/NS 50 ML 50 ML IV SCH (09:33)
[2019-12-27] MEDS: AZITHROMYCIN 500MG/NS 250 ML 250 ML IV SCH (10:21)
[2019-12-27] MEDS: ENOXAPARIN SOD INJ 40 MG/0.4 ML SYR SC SCH (16:01)
--- NOTE | 2019-12-27 18:05 | NUR ---
Pt on 4L NC. Pt desaturates to 85% upon exertion and becomes tachycardic. Pt wants to do exercises in bed to maintain strength. Dr. Tony gave orders for PT evaluation but does not want pt exerting herself too much and becoming more SOB. PT Hema informed of this before working with the pt. Pt refused afternoon insulin. Pt resting in bed comfortably, no s/s of distress at this time.
[2019-12-28] VITALS (9 sets, daily range): BP systolic 100–134; BP diastolic 62–92
[2019-12-28] MEDS: ALBUTEROL/IPRATROPIUM 3 ML NEB NEB SCH ×5 (03:02→23:05)
[2019-12-28] MEDS: METHYLPREDNISOLONE SOD SUCC 40 MG/ML VIAL 1ML IV SCH ×3 (06:18→21:03)
[2019-12-28] MEDS: GUAIFENESIN/DEXTROMETHORPHAN LIQD 5 ML UDC NG SCH ×3 (06:18→21:03)
--- NOTE | 2019-12-28 06:25 | NUR ---
IM- progress note O/N see below ROS: no f/c/s/N/V/D/MICHAEL/cp/skin rash/dizziness/focal limb weakness v/s revd PE tired appearing anicteric ns1s2 mod bs soft nt nd Reduced BS throughout no e/t skin dry flat affect a&ox3 labs/meds revd A/P: AECOPD- azithromycin/ceftriaxone/lorataradine/antitussives/Steroids Chronic resp failure- on 3L/min O2 at home. Allergic rhinitis- loratadine Nicotine dependence in remission- Prop: pepcid; lovenox Dispo: Nebs/abx/other meds; add steroids 12/26 cont care. 12/27 GNR UTI; cont pulm support 12/28 citrobacter youngae- use levaquin; Josue Schaefer MD, PhD.
[2019-12-28] MEDS: INSULIN LISPRO 100 UNIT/1 ML 3ML VIAL SQ SCH ×4 (07:30→21:00)
[2019-12-28] MEDS: LORATADINE 10 MG TAB PO SCH (07:54)
[2019-12-28] MEDS: LEVOFLOXACIN 500MG/D5W 100ML 100 ML IV SCH (07:54)
[2019-12-28] MEDS: FLUTICASONE PROPIONATE NASAL SPRAY NS SCH ×2 (07:54→18:57)
[2019-12-28] MEDS: METOPROLOL TARTRATE 25 MG TAB PO SCH ×2 (07:55→18:56)
[2019-12-28] MEDS: LOSARTAN POTASSIUM 25 MG TAB PO SCH (07:55)
[2019-12-28] MEDS: BENZONATATE 100 MG CAP PO SCH ×3 (07:55→21:03)
[2019-12-28] MEDS: FAMOTIDINE 20 MG TAB PO SCH ×2 (09:53→16:33)
[2019-12-28] MEDS: AZITHROMYCIN 500MG/NS 250 ML 250 ML IV SCH (11:41)
--- NOTE | 2019-12-28 12:41 | NUR ---
SPOKE WITH PT ABOUT SNF ORDER, SHE STATES I REALLY DONT FEEL LIKE I NEED TO GO, I FEEL BETTER. LEFT LIST OF FACILITIES IN NETWORK AND LET KNOW I WOULD SPEAK WITH CM.
[2019-12-28] MEDS: ENOXAPARIN SOD INJ 40 MG/0.4 ML SYR SC SCH (18:57)
[2019-12-28] MEDS: ALPRAZOLAM 0.5 MG TAB PO PRN (22:09)
[2019-12-29] VITALS (14 sets, daily range): BP systolic 112–144; BP diastolic 77–103
[2019-12-29] MEDS: ALBUTEROL/IPRATROPIUM 3 ML NEB NEB SCH ×6 (03:10→23:00)
[2019-12-29] MEDS: GUAIFENESIN/DEXTROMETHORPHAN LIQD 5 ML UDC NG SCH ×3 (06:00→21:23)
[2019-12-29] MEDS: METHYLPREDNISOLONE SOD SUCC 40 MG/ML VIAL 1ML IV SCH ×3 (06:00→21:23)
[2019-12-29] MEDS: LEVOFLOXACIN 500MG/D5W 100ML 100 ML IV SCH (06:00)
[2019-12-29] MEDS: INSULIN LISPRO 100 UNIT/1 ML 3ML VIAL SQ SCH ×4 (07:29→21:00)
[2019-12-29] MEDS: FAMOTIDINE 20 MG TAB PO SCH ×2 (07:57→18:03)
--- NOTE | 2019-12-29 08:11 | NUR ---
IM- progress note O/N see below ROS: no f/c/s/N/V/D/MICHAEL/cp/skin rash/dizziness/focal limb weakness v/s revd PE tired appearing anicteric ns1s2 mod bs soft nt nd Reduced BS throughout no e/t skin dry flat affect a&ox3 labs/meds revd A/P: AECOPD- azithromycin/ceftriaxone/lorataradine/antitussives/Steroids Chronic resp failure- on 3L/min O2 at home. Allergic rhinitis- loratadine Nicotine dependence in remission- Prop: pepcid; lovenox Dispo: Nebs/abx/other meds; add steroids 12/26 cont care. 12/27 GNR UTI; cont pulm support 12/28 citrobacter youngae- use levaquin; 12/29 doing better; cont care; Josue Schaefer MD, PhD.
[2019-12-29] MEDS: BENZONATATE 100 MG CAP PO SCH (08:30)
[2019-12-29] MEDS: LORATADINE 10 MG TAB PO SCH (08:33)
[2019-12-29] MEDS: FLUTICASONE PROPIONATE NASAL SPRAY NS SCH ×2 (08:34→18:03)
[2019-12-29] MEDS: LOSARTAN POTASSIUM 25 MG TAB PO SCH (08:41)
[2019-12-29] MEDS: METOPROLOL TARTRATE 25 MG TAB PO SCH ×2 (08:41→18:06)
[2019-12-29] MEDS: ENOXAPARIN SOD INJ 40 MG/0.4 ML SYR SC SCH (18:03)
[2019-12-29] MEDS: ALPRAZOLAM 0.5 MG TAB PO PRN (21:23)
[2019-12-30 00:15] VITALS: BP 123/77
[2019-12-30] MEDS: ALBUTEROL/IPRATROPIUM 3 ML NEB NEB SCH ×4 (03:00→11:00)
[2019-12-30 04:08] VITALS: BP 137/79
[2019-12-30] MEDS: GUAIFENESIN/DEXTROMETHORPHAN LIQD 5 ML UDC NG SCH ×2 (05:29→14:07)
[2019-12-30] MEDS: LEVOFLOXACIN 500MG/D5W 100ML 100 ML IV SCH (05:29)
[2019-12-30] MEDS: METHYLPREDNISOLONE SOD SUCC 40 MG/ML VIAL 1ML IV SCH ×2 (05:29→14:07)
[2019-12-30 06:30] LABS: BASOPHILS % 0.1 % (0.0-1.0); HEMATOCRIT 36.7 % (34.2-44.1); HEMOGLOBIN 10.9 g/dL (12.0-16.0); LYMPHOCYTES % 10.5 % (18.0-39.1); MEAN CORPUSCULAR HEMOGLOBIN 26.3 pg (28-32); MEAN CORPUSCULAR HGB CONC 29.7 g/dL (31-35); MEAN CORPUSCULAR VOLUME 88.4 fL (81-99); MONOCYTES # (AUTO) 0.6 (0.2-0.8); MONOCYTES % 5.8 % (4.4-11.3); NEUTROPHILS # (AUTO) 7.9 (2.1-6.9); NEUTROPHILS % 82.7 % (38.7-80.0); PLATELET COUNT 330 x10e3/uL (140-360); RED BLOOD COUNT 4.15 x10e6/uL (3.6-5.1); RED CELL DISTRIBUTION WIDTH 13.9 % (11.7-14.4)
[2019-12-30 06:45] LABS: ALANINE AMINOTRANSFERASE 19 IU/L (0-55); ALBUMIN 2.5 g/dL (3.5-5.0); ALBUMIN/GLOBULIN RATIO 0.9 (0.8-2.0); ALKALINE PHOSPHATASE 50 IU/L (40-150); ANION GAP 13.5 mmol/L (8-16); BLOOD UREA NITROGEN 29 mg/dL (7-26); BUN/CREATININE RATIO 39 (6-25); CALCIUM 8.1 mg/dL (8.4-10.2); CARBON DIOXIDE 28 mmol/L (22-29); CHLORIDE 101 mmol/L (98-107); CREATININE, SERUM 0.75 mg/dL (0.57-1.11); EST GLOMERULAR FILTRATION RATE > 60 ML/MIN (60-); GLUCOSE 104 mg/dL (74-118); POTASSIUM 4.5 mmol/L (3.5-5.1); SODIUM 138 mmol/L (136-145)
[2019-12-30 07:00] VITALS: BP 123/81
[2019-12-30] MEDS: INSULIN LISPRO 100 UNIT/1 ML 3ML VIAL SQ SCH ×2 (07:30→11:30)
[2019-12-30 07:53] VITALS: BP 123/81
[2019-12-30] MEDS: LORATADINE 10 MG TAB PO SCH (08:00)
[2019-12-30] MEDS: FAMOTIDINE 20 MG TAB PO SCH (08:00)
[2019-12-30] MEDS: LOSARTAN POTASSIUM 25 MG TAB PO SCH (08:01)
[2019-12-30] MEDS: METOPROLOL TARTRATE 25 MG TAB PO SCH (08:01)
--- NOTE | 2019-12-30 08:59 | NUR ---
D/C summary Principal dx: AECOPD- azithromycin/ceftriaxone/lorataradine/antitussives/Steroids Chronic resp failure- on 3L/min O2 at home. Allergic rhinitis- loratadine UTI with citrobacter youngae Secondary Dx Nicotine dependence in remission- Prop: pepcid; lovenox Dispo: Nebs/abx/other meds; add steroids 12/26 cont care. 12/27 GNR UTI; cont pulm support 12/28 citrobacter youngae- use levaquin; 12/29 doing better; cont care; d/c home with 3L/minO2 stable d/c>35mins f/u pcp 1 week and 1 week Josue Schaefer MD, PhD.
[2019-12-30] MEDS: FLUTICASONE PROPIONATE NASAL SPRAY NS SCH (09:00)
[2019-12-30 11:12] VITALS: BP 126/88
[2019-12-30] MEDS ORDERED: Guaifenesin/Dextromethorphan NG (13:46)
[2019-12-30] MEDS ORDERED: LORATADINE10 MG PO (13:46)
[2019-12-30] MEDS ORDERED: LEVAQUIN500 MG PO (13:46)
[2019-12-30] MEDS ORDERED: PREDNISONE20 MG PO (13:46)
== END 2019-12-30 15:00 | disposition home or self-care (01) | DRG 872 ==
LOC: ER 09:52 → ERHOLD 12:05 → IMCU 14:03 → ICU 12-28 16:40
PROVIDERS: ADMIT Internal Medicine; ATTEND Internal Medicine
DX: A41.9 Sepsis, unspecified organism (principal); J44.1 Chronic obstructive pulmonary disease with (acute) exacerbation; N39.0 Urinary tract infection, site not specified; J96.10 Chronic respiratory failure, unspecified whether with hypoxia or hypercapnia; Z68.1 Body mass index [BMI] 19.9 or less, adult; F41.9 Anxiety disorder, unspecified; I10 Essential (primary) hypertension; J30.9 Allergic rhinitis, unspecified; B96.89 Other specified bacterial agents as the cause of diseases classified elsewhere; K21.9 Gastro-esophageal reflux disease without esophagitis; G47.33 Obstructive sleep apnea (adult) (pediatric); M06.9 Rheumatoid arthritis, unspecified; R63.6 Underweight; M81.0 Age-related osteoporosis without current pathological fracture; Z99.81 Dependence on supplemental oxygen; Z87.891 Personal history of nicotine dependence
CPT/HCPCS: 36415; 36600; 71045; 80053; 80307; 81001; 82103; 82550; 82553; 82805; 82948; 83605; 83735; 83880; 84484; 85025; 85610; 85730; 87040; 87086; 87186; 87400; 93005; 93306; 94640; 97139; 99284; J0456; J0696; J1650; J1956; J2920; J2930; J7030; J7040

== ENCOUNTER 2020-01-09 10:59 | Inpatient (IN) | payer MEDICARE ==
[~2020-01-09] VITALS: Ht 170.2 cm; Wt 53.1 kg
[~2020-01-09 10:59] MED LIST: ALPRAZOLAM0.5 M1 PO; COMBIVENT RESPIM4 GM IH; DICYCLOMINE HCL20 MG PO; GABAPENTIN300 MG PO; Guaifenesin/Dextromethorphan NG; LASIX20 MG PO; LEVAQUIN500 MG PO; LORATADINE10 MG PO; LOSARTAN POTASS25 MG PO; METOPROLOL TART25 MG PO; NORCO 10-325 T1 EACH PO; PREDNISONE10 MG PO; PREDNISONE20 MG PO
[2020-01-09] MEDS ORDERED: FAMOTIDINE 20 MG/2 ML VIAL IV STA (11:49)
[2020-01-09] MEDS ORDERED: ALBUTEROL SULF 0.083% NEB SOLN 3 ML NEB NEB STA (11:49)
[2020-01-09] MEDS ORDERED: SODIUM CHLORIDE 0.9% 1000ML 500 ML IV STA (11:49)
[2020-01-09] MEDS ORDERED: METHYLPREDNISOLONE SOD SUCC 125 MG/2ML VIAL IV STA (11:49)
[2020-01-09] MEDS ORDERED: IPRATROPIUM BROMIDE 0.02% 2.5 ML NEB NEB STA (11:49)
[2020-01-09] MEDS ORDERED: SODIUM CHLORIDE 0.9% 1000ML 1,000 ML IV STA (11:49)
[2020-01-09] MEDS ORDERED: LEVOFLOXACIN 500MG/D5W 100ML 100 ML IV ONE (12:00)
--- NOTE | 2020-01-09 12:33 | Diagnostic Imaging Report ---
EXAM: CHEST SINGLE (PORTABLE) DATE: 01/09/2020 11:49 AM INDICATION: Shortness of breath COMPARISON: 10/25/2020 FINDINGS: The lungs are hyperinflated which can be seen in the setting of COPD. Again identified are increased interstitial markings with a peripheral predominance. Findings are similar to the prior examination and may reflect fibrosis/interstitial lung disease. There is no evidence for new large focal consolidation, pneumothorax, or significant pleural effusion. The cardiomediastinal silhouette is stable in appearance. No acute osseous abnormality is identified. IMPRESSION: No significant interval change from 10/25/2020. Signed by: Dr. Paul Jasmine MD on 01/09/2020 12:31 PM
[2020-01-09 12:36] LABS: ABG PCO2 50 mmHg (41-51); ABG PH 7.41 (7.31-7.41); ABG PO2 92 mmHg (80-105)
[2020-01-09 12:37] LABS: ABG HCO3 32 mmol/L (23-28)
[2020-01-09 13:15] LABS: BASOPHILS % 0.1 % (0.0-1.0); EOSINOPHILS % 0.1 % (0.0-6.0); HEMATOCRIT 38.5 % (34.2-44.1); HEMOGLOBIN 11.3 g/dL (12.0-16.0); LYMPHOCYTES # (AUTO) 0.6 (1.0-3.2); LYMPHOCYTES % 3.8 % (18.0-39.1); MEAN CORPUSCULAR HEMOGLOBIN 26.6 pg (28-32); MEAN CORPUSCULAR HGB CONC 29.4 g/dL (31-35); MEAN CORPUSCULAR VOLUME 90.6 fL (81-99); MONOCYTES # (AUTO) 0.2 (0.2-0.8); MONOCYTES % 1.4 % (4.4-11.3); NEUTROPHILS % 93.9 % (38.7-80.0); PLATELET COUNT 271 x10e3/uL (140-360); RED BLOOD COUNT 4.25 x10e6/uL (3.6-5.1); RED CELL DISTRIBUTION WIDTH 15.2 % (11.7-14.4)
[2020-01-09 13:39] LABS: ALANINE AMINOTRANSFERASE 10 IU/L (0-55); ALBUMIN 3.1 g/dL (3.5-5.0); ALKALINE PHOSPHATASE 71 IU/L (40-150); ANION GAP 14.9 mmol/L (8-16); BLOOD UREA NITROGEN 15 mg/dL (7-26); BUN/CREATININE RATIO 21 (6-25); CALCIUM 8.9 mg/dL (8.4-10.2); CARBON DIOXIDE 30 mmol/L (22-29); CHLORIDE 97 mmol/L (98-107); CREATININE, SERUM 0.72 mg/dL (0.57-1.11); EST GLOMERULAR FILTRATION RATE > 60 ML/MIN (60-); GLUCOSE 205 mg/dL (74-118); MAGNESIUM 1.5 MG/DL (1.3-2.1); POTASSIUM 3.9 mmol/L (3.5-5.1); SODIUM 138 mmol/L (136-145)
[2020-01-09 13:40] LABS: CREATINE KINASE < 7 IU/L (29-168)
[2020-01-09] MEDS: IPRATROPIUM BROMIDE 0.02% 2.5 ML NEB NEB SCH ×2 (14:20→20:25)
[2020-01-09] MEDS: ALBUTEROL SULF 0.083% NEB SOLN 3 ML NEB NEB SCH ×3 (14:20→23:00)
[2020-01-09 15:19] LABS: INR 0.81; PROTHROMBIN TIME 11.6 seconds (11.9-14.5)
[2020-01-09 15:23] LABS: PARTIAL THROMBOPLASTIN TIME 22.6 seconds (23.8-35.5)
[2020-01-09 15:46] LABS: CLARITY,URINE CLEAR (CLEAR); COLOR,URINE YELLOW (YELLOW)
[2020-01-09 15:47] LABS: BILIRUBIN,URINE NEGATIVE (NEGATIVE); KETONES,URINE NEGATIVE (NEGATIVE); LEUKOCYTE ESTERASE ,URINE NEGATIVE (NEGATIVE); NITRITE,URINE NEGATIVE (NEGATIVE); PROTEIN,URINE DIPSTICK NEGATIVE (NEGATIVE); URINE UROBILINOGEN 0.2 mg/dL (0.2 - 1)
[2020-01-09 15:57] LABS: EPITHELIAL CELLS,URINE FEW /LPF; WBC,URINE (MAN) 0-5 /HPF (0-5); YEAST,URINE RARE
[2020-01-09 16:05] VITALS: BP 138/78
--- NOTE | 2020-01-09 16:05 | NUR ---
Received patient lying in bed with eyes open. Respiration even, regular with SOB. O2 3L via nasal cannula. Denies pain at this time.
[2020-01-09 16:32] VITALS: BP 138/78
--- NOTE | 2020-01-09 19:02 | NUR ---
Report given to night shift supervisor. Respiration even and unlabored without SOB. Call light in reach.
[2020-01-09] MEDS: METHYLPREDNISOLONE SOD SUCC 40 MG/ML VIAL 1ML IV SCH (19:21)
[2020-01-09] MEDS: FAMOTIDINE 20 MG/2 ML VIAL IV SCH (19:21)
[2020-01-09] MEDS: SODIUM CHLORIDE 0.9% 1000ML 1,000 ML IV SCH (19:21)
[2020-01-09 20:00] VITALS: BP 142/94
--- NOTE | 2020-01-09 20:00 | NUR ---
RECEIVED PT LYING ON THE BED AOX3 .PT DENIES PAIN .IV NS AT 100 CC/HR IS RUNNING .CALL [facility] WITH IN REACH .CONTINUE TO MONITOR
[2020-01-09] MEDS: ALPRAZOLAM 0.5 MG TAB PO PRN (20:09)
[2020-01-09 20:14] VITALS: BP 138/78
[2020-01-09 21:48] LABS: CREATINE KINASE 7 IU/L (29-168)
[2020-01-10] VITALS (7 sets, daily range): BP systolic 135–150; BP diastolic 77–87
[2020-01-10] MEDS: IPRATROPIUM BROMIDE 0.02% 2.5 ML NEB NEB SCH ×4 (01:00→19:38)
[2020-01-10] MEDS: ALBUTEROL SULF 0.083% NEB SOLN 3 ML NEB NEB SCH ×6 (03:00→23:02)
--- NOTE | 2020-01-10 05:42 | Diagnostic Imaging Report ---
Examination: Single AP view of the chest. COMPARISON: 01/09/2020 INDICATION: Pneumonia DISCUSSION: Lungs remain well-inflated and without focal consolidation. Coarse reticular interstitial prominence likely fibrosis. Biapical pleural-parenchymal scar. Cardiomediastinal contour and pulmonary vasculature are within normal limits when accounting for AP technique. No acute osseous abnormalities. IMPRESSION: Stable appearance of the chest relative to 01/09/2020. Chronic appearing changes of the lungs without focal consolidation. Signed by: Dr. Suhas Welsh M.D. on 01/10/2020 5:40 AM
[2020-01-10] MEDS: METHYLPREDNISOLONE SOD SUCC 40 MG/ML VIAL 1ML IV SCH ×3 (06:00→18:55)
[2020-01-10 06:17] LABS: BASOPHILS % 0.1 % (0.0-1.0); HEMATOCRIT 34.9 % (34.2-44.1); HEMOGLOBIN 10.3 g/dL (12.0-16.0); LYMPHOCYTES # (AUTO) 0.7 (1.0-3.2); LYMPHOCYTES % 7.2 % (18.0-39.1); MEAN CORPUSCULAR HEMOGLOBIN 26.5 pg (28-32); MEAN CORPUSCULAR HGB CONC 29.5 g/dL (31-35); MEAN CORPUSCULAR VOLUME 89.7 fL (81-99); MONOCYTES # (AUTO) 0.3 (0.2-0.8); MONOCYTES % 3.6 % (4.4-11.3); NEUTROPHILS # (AUTO) 8.3 (2.1-6.9); NEUTROPHILS % 87.8 % (38.7-80.0); PLATELET COUNT 246 x10e3/uL (140-360); RED BLOOD COUNT 3.89 x10e6/uL (3.6-5.1); RED CELL DISTRIBUTION WIDTH 15.2 % (11.7-14.4)
--- NOTE | 2020-01-10 06:17 | NUR ---
PT RESTED DURING THE NIGHT .DENIES PAIN .CALL LIGHT WITH IN REACH .CONTINUE TO MONITOR
[2020-01-10 06:54] LABS: ALANINE AMINOTRANSFERASE 9 IU/L (0-55); ALBUMIN 2.8 g/dL (3.5-5.0); ALBUMIN/GLOBULIN RATIO 0.9 (0.8-2.0); ALKALINE PHOSPHATASE 54 IU/L (40-150); ANION GAP 10.3 mmol/L (8-16); BLOOD UREA NITROGEN 17 mg/dL (7-26); BUN/CREATININE RATIO 25 (6-25); CALCIUM 8.7 mg/dL (8.4-10.2); CARBON DIOXIDE 31 mmol/L (22-29); CHLORIDE 100 mmol/L (98-107); CREATININE, SERUM 0.68 mg/dL (0.57-1.11); EST GLOMERULAR FILTRATION RATE > 60 ML/MIN (60-); GLUCOSE 126 mg/dL (74-118); POTASSIUM 4.3 mmol/L (3.5-5.1); SODIUM 137 mmol/L (136-145)
--- NOTE | 2020-01-10 07:07 | NUR ---
H&P cc: sob HPI: 64yoF, PCP Dr.R. 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 PMH: NIcotine dependence in remission, COPD, sbo s/p partial small bowel resection, Allegic rhinitis, CHronic resp failure on 3L/min O2 at home, allergic rhinitis, UTI with citrobacter youngae PSHx: partial small bowel due to SBO, appendectomy Allergies; se emr Fh/SH; ; quit cigs; meds; see MAR ROS: no f/c/s/N/V/D/MICHAEL/cp/skin rash/dizziness/focal limb weakness v/s revd PE tired appearing anicteric ns1s2 mod bs soft nt nd Reduced BS throughout; course; coughing with deep inspiration; on 3L O2 NC no e/t skin dry flat affect a&ox3 labs/meds revd A/P: AECOPD- cefepime abx; cough meds and steroids; loratadine; Chronic resp failure- on 3L/min O2 at home. Allergic rhinitis- loratadine Nicotine dependence in remission-still no recurrence Physical deconditioning PT Prop: pepcid; lovenox Dispo: [facility] elysia Schaefer MD, PhD.
[2020-01-10] MEDS: SODIUM CHLORIDE 0.9% 1000ML 1,000 ML IV SCH ×2 (07:10→07:53)
[2020-01-10 07:13] LABS: CREATINE KINASE < 7 IU/L (29-168)
--- NOTE | 2020-01-10 07:24 | NUR ---
BEDSIDE REPORT GIVEN TO THE ONCOMING NURSE
[2020-01-10] MEDS ORDERED: ONDANSETRON HCL INJ 2MG/ML 2ML 2 MG/ML VIAL IV PRN (08:00)
[2020-01-10] MEDS ORDERED: ACETAMINOPHEN 325 MG TAB PO PRN (08:00)
[2020-01-10] MEDS ORDERED: GABAPENTIN 300 MG CAP PO SCH (09:00)
[2020-01-10] MEDS: FAMOTIDINE 20 MG/2 ML VIAL IV SCH ×2 (09:59→18:47)
[2020-01-10] MEDS: LORATADINE 10 MG TAB PO SCH (09:59)
[2020-01-10] MEDS: LOSARTAN POTASSIUM 25 MG TAB PO SCH (10:00)
[2020-01-10] MEDS: FUROSEMIDE 20 MG TAB PO SCH (10:00)
[2020-01-10] MEDS: METOPROLOL TARTRATE 25 MG TAB PO SCH ×2 (10:01→18:47)
[2020-01-10] MEDS: BENZONATATE 100 MG CAP PO SCH ×3 (10:02→21:51)
[2020-01-10] MEDS: CEFEPIME 1GM/NS 0.9% 50 ML 50 ML IV SCH (10:04)
--- NOTE | 2020-01-10 10:18 | NUR ---
SPOKE WITH PATIENT WHILE NURSE DERICK IN ROOM, TALKED TO HER ABOUT THE ORDER FOR SNF, SHE STATES SHE WILL HAVE TO THINK ABOUT IT AND WAS TOLD BY THE [facility] THAT THEY COULD COME TO HER HOUSE. LEFT LIST OF FACILITIES IN NETWORK AT BEDSIDE FOR IN NETWORK BUILDINGS, MADE NOTATIONS FOR PRIVATE ROOMS AND DOCTORS AT FACILITIES. SHE STATES AGAIN SHE WOULD HAVE TO THINK ABOUT IT.
[2020-01-10] MEDS ORDERED: LEVOFLOXACIN 500MG/D5W 100ML 100 ML IV SCH (12:00)
--- NOTE | 2020-01-10 12:08 | NUR ---
Patient is transported for CTA.
--- NOTE | 2020-01-10 12:17 | NUR ---
CT is back from CT.
--- NOTE | 2020-01-10 12:49 | Diagnostic Imaging Report ---
EXAM: CT Chest WITH contrast- Pulmonary Embolism Protocol INDICATION: Chest pain, shortness of breath COMPARISON: Chest radiograph 01/10/2020 TECHNIQUE: Chest was scanned utilizing a multidetector helical scanner from the lung apex through the level of the diaphragm after administration of IV contrast. Thin section reconstructions were obtained with special concentration on the pulmonary arteries. Coronal and sagittal reformations were obtained. Pulmonary embolism protocol was performed. IV CONTRAST: 100 cc of Isovue 370 RADIATION DOSE: Total DLP: 350.5 mGy*cm Dose modulation, iterative reconstruction, and/or weight based adjustment of the mA/kV was utilized to reduce the radiation dose to as low as reasonably achievable. COMPLICATIONS: None FINDINGS: LINES/ TUBES: None. PULMONARY ARTERIES: Somewhat eccentric filling in the posterior basal segmental pulmonary artery consistent with segmental pulmonary embolism. No other pulmonary emboli identified. The main pulmonary artery measures up to 2.9 cm in diameter. No evidence of right heart strain. LUNGS AND AIRWAYS: The lungs are hyperinflated. The central airways are patent. Biapical pleural parenchymal thickening/scarring. Severe diffuse upper lobe predominant bilateral centrilobular and paraseptal emphysema. Large posterior left upper lobe bulla measures up to 7.4 cm. Diffusely increased interstitial opacities with honeycombing at the anterior left lower lobe, consistent with chronic interstitial lung disease. PLEURA: The pleural spaces are clear. HEART AND MEDIASTINUM: The thyroid gland is normal. No supraclavicular, axillary, mediastinal, or hilar lymphadenopathy. The heart is not enlarged. No pericardial effusion. Mild scattered atherosclerotic calcifications of the aorta and coronary arteries. UPPER ABDOMEN: Small sliding hiatal hernia. No acute findings. BONES: No acute osseous injury. No suspicious lytic or blastic lesions. SOFT TISSUES: 1.5 cm left breast cyst. IMPRESSION: Filling defect in the posterior basal segmental pulmonary artery consistent with segmental pulmonary embolism. The somewhat eccentric appearance may indicate chronicity. No other pulmonary emboli. No evidence of right heart strain. Severe diffuse centrilobular and paraseptal emphysema with a large posterior left upper lobe bulla. Diffusely increased interstitial opacities with honeycombing at the anterior left lower lobe, consistent with interstitial lung disease. Signed by: Oleg Gómez MD on 01/10/2020 12:47 PM
[2020-01-10] MEDS ORDERED: SODIUM CHLORIDE 0.9% 50ML 50 ML ONE (13:16)
[2020-01-10] MEDS ORDERED: IOPAMIDOL 370 MG/ML 200 ML INFUS..BTL INJ ONE (13:16)
[2020-01-10] MEDS ORDERED: HEPARIN SOD (PORCINE) 5,000 UNIT/ML VIAL IV ONE (15:30)
[2020-01-10] MEDS ORDERED: HEPARIN 25,000 UNIT 1,000 UNIT in DEXTROSE 5% 250ML 250 ML IV SCH (15:30)
[2020-01-10] MEDS: GUAIFENESIN/DEXTROMETHORPHAN LIQD 5 ML UDC NG SCH ×3 (16:12→22:09)
--- NOTE | 2020-01-10 18:15 | Consultation ---
DATE OF CONSULTATION: 01/10/2020 Pulmonary Consultation REASON FOR CONSULT: Shortness of breath. HISTORY OF PRESENT ILLNESS: Ms. Ruelas is a 64-year-old female. She has COPD and bullous emphysema. She was seen in my office yesterday, was having shortness of breath, generalized weakness. She was recently discharged from the hospital when she was treated for COPD exacerbation. She reports that she is having increasing weakness. Also, had episode where she was passing out. Her shortness of breath is most severe when she is trying to do anything, even walk short distances, it was constant, was not resolving and she was feeling rundown and tired. She was having increasing cough and wheezing, also has runny nose and runny eyes as well. She denies any nausea, vomiting, or diarrhea. Denies any loss of consciousness, but felt dizzy multiple times. REVIEW OF SYSTEMS: GENERAL: Denies any fever or chills. HEAD: Denies any head trauma. ENT: Denies any earache. CVS: Denies any chest pain. RESPIRATORY: Shortness of breath. GI: Denies any nausea or vomiting. The rest of the review of systems are negative except as in HPI. PAST MEDICAL HISTORY: 1. COPD. 2. Hypertension. 3. Neuropathy. FAMILY AND SOCIAL HISTORY: She has quit smoking 7-8 months ago. She lives with the family, extremely supportive family with her and grandkids. PHYSICAL EXAMINATION: VITAL SIGNS: Temperature 96.9, pulse of 50, blood pressure 146/87, respiratory rate of 18, and O2 saturation 94% on 4 L. HEENT: Head is atraumatic, normocephalic. NECK: Supple. CHEST: Clear to auscultation bilaterally, no wheezing. HEART: S1, S2, audible. ABDOMEN: Soft. EXTREMITIES: No pedal edema. NEUROLOGIC: Awake and alert. LABORATORY DATA: Sodium 137, potassium 4.3, BUN 17, and creatinine 0.68. White count of 9.4, hemoglobin 10.3, and platelets 246. IMAGING DATA: Chest x-ray reviewed, no changes. No focal infiltrate. ASSESSMENT: Ms. Ruelas is a 64-year-old female. She has COPD, recent hospitalization, now with episode of dizziness, was hypoxic more than usual and was having difficulty walking, possibility of deconditioning secondary to hospitalization versus PE. PLAN: I will do a CTA of the chest. We will continue the treatment for COPD exacerbation, unlikely that she is in severe COPD exacerbation. IV antibiotics have been ordered. We will follow the results of the CT scan and decide whether the patient needs IV antibiotics. I will reduce the fluid to 50 mL an hour. Continue the patient on nebulizer treatment. Oxygen as needed to keep the O2 sat more than or equal to 92%. We will reduce the dose of gabapentin as well and reduce Solu-Medrol as well. Thank you for this consult. MD BERNY Perrin/HETAL /[id number]
--- NOTE | 2020-01-10 19:10 | NUR ---
Report given to night nurse, patient lying in bed with eyes open. Respiration even and unlabored without SOB. Call light in reach.
--- NOTE | 2020-01-10 20:21 | NUR ---
RECEIVED PT LYING ON THE BED AOX3 . RESPIRATIONS ARE PT DENIES PAIN .PT IS ON HEPARIN DRIP .CALL LIGHT WITH IN REACH .CONTINUE TO MONITOR
[2020-01-10] MEDS ORDERED: ZOLPIDEM TARTRATE 5 MG TAB PO PRN (21:00)
[2020-01-11] VITALS (8 sets, daily range): BP systolic 106–178; BP diastolic 61–124
--- NOTE | 2020-01-11 00:52 | NUR ---
PTT IS 48 INCREASED TO 11ML/HR.CONTINUE TO MONITOR
[2020-01-11] MEDS: IPRATROPIUM BROMIDE 0.02% 2.5 ML NEB NEB SCH ×4 (02:10→19:42)
[2020-01-11] MEDS: ALBUTEROL SULF 0.083% NEB SOLN 3 ML NEB NEB SCH ×6 (02:10→23:15)
[2020-01-11] MEDS: SODIUM CHLORIDE 0.9% 1000ML 1,000 ML IV SCH (05:02)
--- NOTE | 2020-01-11 06:02 | NUR ---
PT RESTING DENIES PAIN HEPARIN IS GOING .CALL LIGHT WITH IN REACH .CONTINUE TO MONITOR
[2020-01-11] MEDS: GUAIFENESIN/DEXTROMETHORPHAN LIQD 5 ML UDC NG SCH ×3 (06:23→21:33)
--- NOTE | 2020-01-11 07:20 | NUR ---
BEDSIDE REPORT GIVEN TO THE ONCOMING NURSE
[2020-01-11] MEDS: FUROSEMIDE 20 MG TAB PO SCH (08:52)
[2020-01-11] MEDS: BENZONATATE 100 MG CAP PO SCH ×3 (08:52→20:38)
[2020-01-11] MEDS: METOPROLOL TARTRATE 25 MG TAB PO SCH ×2 (08:52→17:12)
[2020-01-11] MEDS: CEFEPIME 1GM/NS 0.9% 50 ML 50 ML IV SCH (08:52)
[2020-01-11] MEDS: METHYLPREDNISOLONE SOD SUCC 40 MG/ML VIAL 1ML IV SCH (08:53)
[2020-01-11] MEDS: LOSARTAN POTASSIUM 25 MG TAB PO SCH (08:53)
[2020-01-11] MEDS: LORATADINE 10 MG TAB PO SCH (08:53)
[2020-01-11] MEDS: FAMOTIDINE 20 MG/2 ML VIAL IV SCH ×2 (08:53→17:12)
--- NOTE | 2020-01-11 10:38 | NUR ---
IM- progress note O/N see below ROS: no f/c/s/N/V/D/MICHAEL/cp/skin rash/dizziness/focal limb weakness v/s revd PE tired appearing anicteric ns1s2 mod bs soft nt nd Reduced BS throughout; course; coughing with deep inspiration; on 3L O2 NC no e/t skin dry flat affect a&ox3 labs/meds revd A/P: AECOPD- cefepime abx; cough meds and steroids; loratadine; Chronic resp failure- on 3L/min O2 at home. Allergic rhinitis- loratadine Nicotine dependence in remission-still no recurrence Physical deconditioning PT Prop: pepcid; lovenox Dispo: [facility] eval 2-28 PE- possibly chronic; use AC; check venous U/S legs; Josue Schaefer MD, PhD.
--- NOTE | 2020-01-11 11:25 | NUR ---
Dr oTny here for rounds, D/C d heparin drip. Patient is stable, no distress noted
[2020-01-11] MEDS: APIXABAN 5 MG TABLET PO SCH ×2 (13:17→17:12)
--- NOTE | 2020-01-11 14:51 | NUR ---
Patient walks with PT now, not in any distress
--- NOTE | 2020-01-11 19:15 | NUR ---
Received patient awake, not in distress, no complaints of pain at this time. Call light within easy reach, advised to call for assistance anytime, bed alarm activated, will continue to monitor
[2020-01-11] MEDS: GABAPENTIN 300 MG CAP PO SCH (20:38)
[2020-01-12] VITALS (8 sets, daily range): BP systolic 105–131; BP diastolic 65–87
[2020-01-12] MEDS: ALBUTEROL SULF 0.083% NEB SOLN 3 ML NEB NEB SCH ×6 (02:10→23:00)
[2020-01-12] MEDS: IPRATROPIUM BROMIDE 0.02% 2.5 ML NEB NEB SCH ×4 (02:10→19:25)
[2020-01-12] MEDS: GUAIFENESIN/DEXTROMETHORPHAN LIQD 5 ML UDC NG SCH ×3 (05:51→21:22)
--- NOTE | 2020-01-12 07:27 | NUR ---
walking rounds done with chanelle RN, call light within easy reach
--- NOTE | 2020-01-12 07:33 | NUR ---
IM- progress note O/N see below ROS: no f/c/s/N/V/D/MICHAEL/cp/skin rash/dizziness/focal limb weakness v/s revd PE tired appearing anicteric ns1s2 mod bs soft nt nd Reduced BS throughout; course; coughing with deep inspiration; on 3L O2 NC no e/t skin dry flat affect a&ox3 labs/meds revd A/P: AECOPD- cefepime abx; cough meds and steroids; loratadine; Chronic resp failure- on 3L/min O2 at home. Allergic rhinitis- loratadine Nicotine dependence in remission-still no recurrence Physical deconditioning PT Prop: pepcid; lovenox Dispo: SNF eval - PE- possibly chronic; use AC; check venous U/S legs; check H/H Josue Schaefer MD, PhD.
[2020-01-12 07:50] LABS: HEMATOCRIT 35.7 % (34.2-44.1); HEMOGLOBIN 10.7 g/dL (12.0-16.0)
--- NOTE | 2020-01-12 08:00 | NUR ---
pt resting in bed, oxygen on. no c/o pain
[2020-01-12] MEDS: APIXABAN 5 MG TABLET PO SCH ×2 (08:45→17:10)
[2020-01-12] MEDS: FAMOTIDINE 20 MG/2 ML VIAL IV SCH ×2 (08:45→17:10)
[2020-01-12] MEDS: FUROSEMIDE 20 MG TAB PO SCH (08:45)
[2020-01-12] MEDS: LORATADINE 10 MG TAB PO SCH (08:45)
[2020-01-12] MEDS: LOSARTAN POTASSIUM 25 MG TAB PO SCH (08:45)
[2020-01-12] MEDS: METOPROLOL TARTRATE 25 MG TAB PO SCH ×2 (08:45→17:10)
[2020-01-12] MEDS: BENZONATATE 100 MG CAP PO SCH ×3 (08:45→21:00)
[2020-01-12] MEDS: ALPRAZOLAM 0.5 MG TAB PO PRN (11:23)
--- NOTE | 2020-01-12 18:32 | NUR ---
pt sleeping in bed, no signs of distress, report given to oncoming shift
--- NOTE | 2020-01-12 20:17 | NUR ---
Received change of shift report from AM nurse. Walking rounds completed.
[2020-01-12] MEDS: GABAPENTIN 300 MG CAP PO SCH (21:00)
[2020-01-13] VITALS (8 sets, daily range): BP systolic 99–129; BP diastolic 61–71
--- NOTE | 2020-01-13 | NUR ---
Patient resting quitly at this time . Denies pain or discomfort at this time. Tele SR #3. IV intact right FA 20G.
[2020-01-13] MEDS: IPRATROPIUM BROMIDE 0.02% 2.5 ML NEB NEB SCH ×4 (01:00→19:42)
[2020-01-13] MEDS: ALBUTEROL SULF 0.083% NEB SOLN 3 ML NEB NEB SCH ×6 (03:00→23:20)
[2020-01-13] MEDS: GUAIFENESIN/DEXTROMETHORPHAN LIQD 5 ML UDC NG SCH ×3 (05:28→22:00)
--- NOTE | 2020-01-13 05:44 | NUR ---
Patient resting qiutly at this time. No c/o of, in berd
--- NOTE | 2020-01-13 05:53 | NUR ---
IM- progress note O/N see below ROS: no f/c/s/N/V/D/MICHAEL/cp/skin rash/dizziness/focal limb weakness v/s revd PE tired appearing anicteric ns1s2 mod bs soft nt nd Reduced BS throughout; course; coughing with deep inspiration; on 3L O2 NC no e/t skin dry flat affect a&ox3 labs/meds revd A/P: AECOPD- cefepime abx; cough meds and steroids; loratadine; Chronic resp failure- on 3L/min O2 at home. Allergic rhinitis- loratadine Nicotine dependence in remission-still no recurrence Physical deconditioning PT Prop: pepcid; lovenox Dispo: SNF eval 2- PE- possibly chronic; use AC; check venous U/S legs; check H/H 01/12 Hb stable; d/c planning with [facility]. Josue Schaefer MD, PhD.
[2020-01-13] MEDS: FAMOTIDINE 20 MG/2 ML VIAL IV SCH ×2 (08:53→17:09)
[2020-01-13] MEDS: FUROSEMIDE 20 MG TAB PO SCH (08:53)
[2020-01-13] MEDS: APIXABAN 5 MG TABLET PO SCH ×2 (08:53→17:09)
[2020-01-13] MEDS: METOPROLOL TARTRATE 25 MG TAB PO SCH ×2 (08:53→17:09)
[2020-01-13] MEDS: LORATADINE 10 MG TAB PO SCH (08:53)
[2020-01-13] MEDS: BENZONATATE 100 MG CAP PO SCH ×3 (08:53→20:51)
[2020-01-13] MEDS: LOSARTAN POTASSIUM 25 MG TAB PO SCH (08:53)
--- NOTE | 2020-01-13 14:21 | NUR ---
patient resting in bed, Alert with no distress, call light in reach
--- NOTE | 2020-01-13 19:32 | NUR ---
Received change of shift report from AM nurse. Walking rounds completed.
[2020-01-13] MEDS: GABAPENTIN 300 MG CAP PO SCH (20:51)
[2020-01-14] VITALS: BP 97/62
[2020-01-14] MEDS: ALBUTEROL SULF 0.083% NEB SOLN 3 ML NEB NEB SCH ×3 (02:10→10:46)
[2020-01-14] MEDS: IPRATROPIUM BROMIDE 0.02% 2.5 ML NEB NEB SCH ×2 (02:10→07:03)
[2020-01-14 04:00] VITALS: BP 101/62
[2020-01-14] MEDS: GUAIFENESIN/DEXTROMETHORPHAN LIQD 5 ML UDC NG SCH (05:19)
[2020-01-14 07:48] VITALS: BP 109/73
[2020-01-14 08:32] VITALS: BP 109/73
[2020-01-14] MEDS: LORATADINE 10 MG TAB PO SCH (08:57)
[2020-01-14] MEDS: FAMOTIDINE 20 MG/2 ML VIAL IV SCH (08:57)
[2020-01-14] MEDS: METOPROLOL TARTRATE 25 MG TAB PO SCH (08:58)
[2020-01-14] MEDS: LOSARTAN POTASSIUM 25 MG TAB PO SCH (08:58)
[2020-01-14] MEDS: BENZONATATE 100 MG CAP PO SCH (08:58)
[2020-01-14] MEDS: APIXABAN 5 MG TABLET PO SCH (08:58)
[2020-01-14] MEDS: FUROSEMIDE 20 MG TAB PO SCH (08:58)
[2020-01-14] MEDS ORDERED: ONDANSETRON HCL 4 MG ORAL DISINTEGRATING TAB PO PRN (09:15)
[2020-01-14] MEDS ORDERED: MUCINEX DM ER1 EACH PO (10:04)
[2020-01-14] MEDS ORDERED: LORATADINE10 MG PO (10:04)
[2020-01-14] MEDS ORDERED: ELIQUIS5 MG PO (10:04)
[2020-01-14] MEDS ORDERED: TESSALON PERLE100 MG PO (10:04)
[2020-01-14] MEDS ORDERED: FUROSEMIDE20 MG PO (10:04)
--- NOTE | 2020-01-14 10:07 | NUR ---
D/C summary Principal dx: AECOPD- cefepime abx; cough meds and steroids; loratadine; Chronic resp failure- on 3L/min O2 at home. Allergic rhinitis- loratadine Pulmonary embolism Secondary Dx: Nicotine dependence in remission-still no recurrence Physical deconditioning PT Prop: pepcid; lovenox Dispo: SNF eval 2- PE- possibly chronic; use AC; check venous U/S legs; 2- check H/H 01/12 Hb stable; d/c planning with [facility]. d.c home f/u pcp 1 week and 1 week stable d/c>35mins Josue Schaefer MD, PhD.
[2020-01-14 11:37] VITALS: BP 117/86
--- NOTE | 2020-01-14 13:39 | NUR ---
patient discharged home. Dr Schaefer had rounds, prescription and discharge instruction given, IV line removed with tip intact, no ss of infiltration, patient not in any distress or pain, she is on O2 machine 3L NC, at bed side take her home, transported via wheelchair to [facility]
[2020-01-14] MEDS ORDERED: FAMOTIDINE 20 MG TAB PO SCH (16:30)
== END 2020-01-14 13:41 | disposition home or self-care (01) | DRG 190 ==
LOC: ER 10:59 → ERHOLD 12:45 → MED/SURG3 16:11
PROVIDERS: ADMIT Internal Medicine; ATTEND Internal Medicine
DX: J44.1 Chronic obstructive pulmonary disease with (acute) exacerbation (principal); I26.99 Other pulmonary embolism without acute cor pulmonale; J96.11 Chronic respiratory failure with hypoxia; N39.0 Urinary tract infection, site not specified; Z68.1 Body mass index [BMI] 19.9 or less, adult; J30.9 Allergic rhinitis, unspecified; Z99.81 Dependence on supplemental oxygen; Z87.891 Personal history of nicotine dependence; B96.89 Other specified bacterial agents as the cause of diseases classified elsewhere; I10 Essential (primary) hypertension; R63.6 Underweight
CPT/HCPCS: 36415; 36600; 71045; 71260; 80053; 81001; 82550; 82553; 82805; 83735; 83880; 84443; 84484; 85014; 85018; 85025; 85610; 85730; 87040; 87400; 93005; 93970; 94640; 97139; 99284; J0692; J1644; J1956; J2920; J2930; J7030; Q9967